=== PATIENT | female | born 1955 | race Caucasian/White ===

== ENCOUNTER 2023-03-24 11:36 | Outpatient (RCR) | payer MEDICARE, SELFPAY ==
--- NOTE | 2023-03-24 12:41 | OPREHPOC ---
Outpatient Therapy Plan of Care This is a Multidisciplinary Plan of Care that may contain components documented by all disciplines (PT, OT, and ST.) PT Problem 1 PT Problem #1 Knowledge Deficit PT Goal 1 Goal 1. independent and compliant with HEP Target Visit 6 PT Problem 2 PT Problem #2 Pain PT Goal 1 Goal 1. decrease pain at worst to 3/10 in the L knee with exercise and ambulation/standing. Target Visit 18 PT Problem 3 PT Problem #3 Impaired Range of Motion PT Goal 1 Goal 0-120 degrees active L knee rom. Target Visit 18 PT Problem 4 PT Problem #4 Impaired Strength PT Goal 1 Goal 4/5 or better L hip flex in supine without extension lag with SLR 4+/5 or better L knee strength 4+/5 or better L ankle DF Target Visit 18 PT Problem 5 PT Problem #5 Impaired Functional Mobil PT Goal 1 Goal 1. patient to ambulate without AD 2. patient to ambulate 1000ft or more in 6 minute walk test 3. equal stance time and weight bearing during ambulation 4. ambulate up and down steps with reciprocal gait mechanics. Target Visit 18
--- NOTE | 2023-03-24 12:42 | PTOPEVAL1 ---
Assessment and note entered by [facility], PT Evaluation Information Assessment Status Evaluation Diagnosis s/p L TKA Onset 03/15/23 Subjective Information patient reports she had L TKA on 03/15/23. she reports she had arthritis in it prior to surgery. she reports she tore the meniscus 5 years ago, but managed pain and activity with injections. she reports she uses a CPM at home. she reports she is cautious as this is her first surgery. Reported Pain Level Pain Score 3: Self Report Assessment PT Clinical Summary mrs. chung presents to skilled PT for evaluation and treatment of L knee pain, weakness, and abnormal gait mechanics following L TKA. she presents today with deficits in rom, strength, gait mechanics, balance, and functional activity performance. she would benefit from continued skilled PT services to improve her objective/ functional deficits and return to her prior level mobility and quality of life. Plan of Care Interventions Electrical Stimulation,Hot Pack/Cold Pack,Manual Therapy,Neuro Re-education,Patient/Caregiver Educati,Therapeutic Activities,Therapeutic Exercise PT Services Indicated Yes Treatment Frequency and 3x weekly for 18 visits Duration These treatments will address the objective and functional deficits as defined above. The patient will be advanced safely and appropriately in order for the patient to progress towards his/her prior level of function. Additional exercises will be introduced and as well as a comprehensive home exercise program upon discharge, if needed, ?to ensure carryover of functional gains achieved in the clinic. This treatment plan has been reviewed and agreement upon by the patient.
--- NOTE | 2023-03-28 07:57 | PCPTNOTE ---
Mrs. García left a voice message with the clinic stating that she would have to cancel her appointment due to being ill.
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
--- NOTE | 2023-04-11 07:01 | PCPTNOTE ---
Patient cancelled session today due to illness.
--- NOTE | 2023-04-15 11:09 | PCPTNOTE ---
patient cancelled due to incision opening
--- NOTE | 2023-04-19 13:04 | PCPTNOTE ---
patient had to re-schedule today's appointment for later this week.
--- NOTE | 2023-04-25 08:18 | PTOPPROG ---
Assessment and note entered by [facility] Evaluation Information Assessment Status Progress Diagnosis s/p L TKA Onset 03/15/23 Subjective Information Pt. reports that she is slowly improving. She reports that she is still noticing stiffness, but continues to exercise at home. She reports she is still exercising at least 3x/day. She states that she has returned to driving and is currently using a cane for all ambulation. She reports her goal remains to improve her mobility and walk normally. Assessment PT Clinical Summary Pt. has attended a total of 10 treatment sessions. She has demonstrated gradual improvements in strength and mobility since beginning rehab. She continues to present with deficits in strength, ROM, edema and gait despite progress. Continued rehab is recommended in order to allow the pt. to achieve her goal of normal gait and mobility. Plan of Care Interventions Gait Training,Intermittent Compression,Manual Therapy,Neuro Re-education,Patient/Caregiver Educati,Therapeutic Activities,Therapeutic Exercise PT Services Indicated Yes Treatment Frequency and 3x/week x 8 visits Duration These treatments will address the objective and functional deficits as defined above. The patient will be advanced safely and appropriately in order for the patient to progress towards his/her prior level of function. Additional exercises will be introduced and as well as a comprehensive home exercise program upon discharge, if needed, ?to ensure carryover of functional gains achieved in the clinic. This treatment plan has been reviewed and agreement upon by the patient.
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
--- NOTE | 2023-05-04 07:06 | PCPTNOTE ---
Patient cancelled session today. She reports her incision keeps opening, and she will be calling her doctor.
--- NOTE | 2023-05-05 12:30 | PCPTNOTE ---
Patient cancelled session for 05/06/23. Patient reports her incision has opened again, and she was told to hold on therapy, and to perform at home. Patient reports she sees the surgeon on Tuesday.
--- NOTE | 2023-06-01 08:47 | OPREHPOC ---
Outpatient Therapy Plan of Care This is a Multidisciplinary Plan of Care that may contain components documented by all disciplines (PT, OT, and ST.) PT Problem 1 PT Problem #1 Knowledge Deficit PT Goal 1 Goal 1. independent and compliant with HEP Target Visit 6 Progress Met PT Problem 2 PT Problem #2 Pain PT Goal 1 Goal 1. decrease pain at worst to 3/10 in the L knee with exercise and ambulation/standing. Target Visit 24 Progress Not Met PT Problem 3 PT Problem #3 Impaired Range of Motion PT Goal 1 Goal 0-120 degrees active L knee rom. Target Visit 24 Progress Not Met PT Problem 4 PT Problem #4 Impaired Strength PT Goal 1 Goal 4/5 or better L hip flex in supine without extension lag with SLR. met 4+/5 or better L knee strength. 4+/5 or better L ankle DF. met Target Visit 24 Progress Partially Met PT Problem 5 PT Problem #5 Impaired Functional Mobil PT Goal 1 Goal 1. patient to ambulate without AD. met 2. patient to ambulate 1000ft or more in 6 minute walk test. met 3. equal stance time and weight bearing during ambulation. 4. ambulate up and down steps with reciprocal gait mechanics. Target Visit 24 Progress Partially Met
--- NOTE | 2023-06-01 08:47 | PTOPREEVAL ---
Assessment and note entered by [facility], PT Evaluation Information Assessment Status Re-evaluation Diagnosis s/p L TKA Onset 03/15/23 Subjective Information patient reports she feels so much better now that the L knee incision is healed and she does not feel like it is pulling apart when bending. she reports she is compliant with exercises at home. she reports it still bothers her the worst when trying to go to bed, getting up in the morning, and when going up and down steps. she reports she only has 2 steps to go up and down at home, but has to use both hand rails. Reported Pain Level Pain Score 1: Self Report Assessment PT Clinical Summary mrs. chung presents to skilled PT for her 18th skilled therapy session. she has had a few minor setback in her treatment plan due to deficits in healing of the L knee incision. she continues to have deficits in L knee active rom, L LE strength, gait mechanics, and stair ambulation. she has not yet met goals for pain and rom, but has made progress towards/partial achievement of goals for strength and functional mobility. she would benefit from continued skilled PT to further improve objective/functional deficits to her remaining functional goals. Plan of Care Interventions Gait Training,Hot Pack/Cold Pack,Intermittent Compression,Manual Therapy,Neuro Re-education, Patient/Caregiver Educati,Therapeutic Activities, Therapeutic Exercise PT Services Indicated Yes Treatment Frequency and continue skilled PT 2x weekly for 6 more visits Duration These treatments will address the objective and functional deficits as defined above. The patient will be advanced safely and appropriately in order for the patient to progress towards his/her prior level of function. Additional exercises will be introduced and as well as a comprehensive home exercise program upon discharge, if needed, ?to ensure carryover of functional gains achieved in the clinic. This treatment plan has been reviewed and agreement upon by the patient.
--- NOTE | 2023-06-06 07:00 | PCPTNOTE ---
Patient cancelled session this morning. Did not give reason for cancelling.
--- NOTE | 2023-06-22 07:08 | PCPTNOTE ---
Patient cancelled session today. Patient reports she is not feeling well.
== END 2023-06-16 20:00 | disposition still patient (30) ==
LOC: CHSPT 11:36
PROVIDERS: Visit Provider Orthopaedic Surgery
DX: Z47.1 Aftercare following joint replacement surgery (principal); Z96.652 Presence of left artificial knee joint
CPT/HCPCS: 97014; 97016; 97110; 97112; 97116; 97140; 97161; 97530; G0283

== ENCOUNTER 2023-06-23 08:00 | Outpatient (RCR) | payer MEDICARE, SELFPAY ==
--- NOTE | 2023-07-01 07:49 | PCPTNOTE ---
patient called to cancel due to babysitting
== END 2023-06-23 20:00 | disposition home or self-care (01) ==
LOC: CHSPT 08:00
PROVIDERS: Visit Provider Orthopaedic Surgery
DX: Z47.1 Aftercare following joint replacement surgery (principal); M54.31 Sciatica, right side; Z96.652 Presence of left artificial knee joint
CPT/HCPCS: 97110; 97112; 97530

== ENCOUNTER 2023-12-27 15:28 | Outpatient (CLI) | payer MEDICARE, SELFPAY | END 2023-12-27 15:29 | disposition home or self-care (01) | LOC: CHSLAB 15:31 | PROVIDERS: PCP Specialist; Visit Provider Specialist | DX: C44.311 Basal cell carcinoma of skin of nose (principal) | CPT/HCPCS: 88305 ==

== ENCOUNTER 2024-06-06 08:07 | Outpatient (CLI) | payer MEDICARE, SELFPAY ==
--- NOTE | ~2024-06-06 | MM_ITS ---
EXAMINATION: MM screening hermelinda BI w lady HISTORY: Screening TECHNIQUE: Craniocaudal and mediolateral oblique 3-D tomosynthesis images were obtained and synthetic 2-D images were generated. CAD analysis was submitted and interpreted. COMPARISON: No prior mammogram is available for comparison at this institution. BREAST PARENCHYMAL COMPOSITION: There are scattered areas of fibroglandular density. FINDINGS: Punctate calcifications are detected bilaterally, morphologically benign in appearance. Unremarkable parenchymal pattern without suspicious microcalcifications, architectural distortion, di screte masses or significant asymmetry. However, no prior imaging is available for comparison. Once prior images arrive, comparison will be performed. IMPRESSION: Prior imaging is needed for complete evaluation BI-RADS Category 0: Incomplete: Needs comparison with prior mammograms. Reviewed, dictated and finalized at location A.
--- OUTSIDE RECORDS SUMMARY | 2024-06-06 08:19 | XMS_ITS | Data Portability ---
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 Plan of Treatment Reminders Order Date Submit Date Provider Last Modified By Organization Details Last Modified Time Details Appointments None recorded. Lab CBC 2024 025 [facility]INE [facility], [address] [facility] [address], [place], [address], 5 09:13:32 CMP, serum or plasma 2024 025 [facility], [address] [facility] [address], [place], [address], 5 09:13:30 lipid panel, serum 2024 025 [facility], [address] [facility] [address], [place], [address], 5 09:13:28 HbA1c (hemoglobin A1c), blood 2024 025 JACQUELINE In-Office Order, Internal Use Only DO Not Attach Compendium DO Not Attach Compendium, Do Not Delete/merge, [id number] 11:10:17 HbA1c (hemoglobin A1c), blood 2023 024 [email or web address] In-Office Order, Internal Use Only DO Not Attach Compendium DO Not Attach Compendium, Do Not Delete/merge, [id number] 4 11:39:03 CBC 2023 024 [facility]QU[facility]INE [facility], [address], [place], [address], 4 11:16:56 CMP, serum or plasma 2023 024 [facility], [address], [place], [address], 4 11:16:54 lipid panel, serum 2023 024 [facility]QU[facility]INE [facility], [address], [place], [address], 4 11:16:54 drug screen, urine 2023 024 [email or web address] In-Office Order, Internal Use Only DO Not Attach Compendium DO Not Attach Compendium, Do Not Delete/merge, [id number] 4 10:53:04 HbA1c (hemoglobin A1c), blood 2023 024 [email or web address] In-Office Order, Internal Use Only DO Not Attach Compendium DO Not Attach Compendium, Do Not Delete/merge, [id number] 4 12:08:49 HbA1c (hemoglobin A1c), blood 2022 023 [email or web address] In-Office Order, Internal Use Only DO Not Attach Compendium DO Not Attach Compendium, Do Not Delete/merge, [id number] 3 11:26:08 CBC 2022 023 [facility], [address], [place], [address], 3 06:21:13 CMP, serum or plasma 2022 023 [facility], [address], [place], [address], 3 06:21:12 lipid panel, serum 2022 023 [facility], [address] [facility] [address], [place], [address], 3 06:21:11 Referral None recorded. Procedures None recorded. Surgeries None recorded. Imaging None recorded. Medication Orders atorvastati n 10 mg tablet 2024 025 [id number], [address] [place], [address], 5 10:56:12 Patient TargetsNo targets recorded. Patient Instructions Encounter Date Encounter Id Patient Instructions Last Modified By Organization Details Last Modified Time 02/22/2023 [id number] A healthy lifestyle: care instructions [facility] Not available 02/22/2023 11:28:41 type 2 diabetes: [facility] Not available 02/22/2023 11:26:05 05/10/2023 [id number] A healthy lifestyle: [facility] Not available 05/10/2023 14:08:29 learning about high blood [facility] Not available 05/10/2023 14:08:29 10/24/2023 [id number] A healthy lifestyle: care instructions [email or web address] Not available 10/24/2023 12:08:48 Your women's health annual exam today was unremarkable. Continue to practice breast self awareness like we discussed. Come back to the office with any breast changes, nipple discharge, or with complaints of unusual odorous discharge. Otherwise, come back in 1 year for your next well woman annual exam. Do NOT douche as it disturbs the natural balance of bacteria in the vagina and can cause infection. Avoid scented soaps or lotions. Use a basic unscented soap for only the outer skin around your vagina. Wear cotton underwear, avoid thongs, avoid spandex, leggings and wear panty liners daily. You can try probiotics. Use a condom with EVERY sexual encounter to minimize your risk for sexually transmitted infection and unplanned . 1. Start taking a multivitamin, calcium and vitamin D3 supplements daily to keep your bones healthy. 2. Exercise and keep a healthy diet to minimize risk for stroke, heart attack and osteoporosis. 3. Use a once a day vaginal moisturizer (like Replens) if you have bothersome dryness. If dryness continues to be a problem, make an appointment to see us to discuss other options. Keep taking your multivitamins. Your bones get weaker after menopause, and you need to take your calcium and vitamin D3, which are multivitamins, to make sure your bones stay strong. Regular exercise, like walking, is very good to keep bones healthy. Try exercising for 30 minutes 5 times a week. Try having 2-3 servings of low fat dairy every day. Lubrication can help make penetrative intercourse more comfortable. There are 3 types of lube: Water-based (examples are KY jelly, Astroglide): inexpensive, can buy over the counter, often gets sticky and needs to be reapplied. Oil-based (examples olive oil, coconut oil): inexpensive, can stain sheets, do not use with condoms. Silicone-based (examples Uber Lube, Pjur): more expensive, a little goes a long way, does not have scents or stain sheets. [email or web address] Not available 10/24/2023 10:26:16 12/13/2023 [id number] influenza (flu) vaccine: care instructions jnanney Not available 12/13/2023 10:55:02 A healthy lifestyle: care instructions jnanney Not available 12/13/2023 10:55:02 learning about type 2 diabetes jnanney Not available 12/13/2023 10:55:02 type 2 diabetes: care instructions jnanney Not available 12/13/2023 10:55:02 learning about high blood pressure jnanney Not available 12/13/2023 10:55:02 05/01/2024 [id number] A healthy lifestyle: care instructions jnanney Not available 05/01/2024 11:00:46 learning about high blood pressure jnanney Not available 05/01/2024 10:49:40 Reason for Referral None Reported. Results Created Date Observation Date Name Description Value Unit Range Abnormal Flag Note LastModifiedBy Organization Detail LastModifiedTime 02/23/20 23 02/22/2023 LIPID PANEL cholesterol, total 246 mg/dL 100-19 9 above high normal Not Available [facility] [address] [place] [address], [place], [address], 02/23/2023 06:21:11 02/23/20 23 02/22/2023 LIPID PANEL triglyceride s 124 mg/dL 0-149 Not Available [address], [address], 02/23/2023 06:21:11 02/23/20 23 02/22/2023 LIPID PANEL HDL cholesterol 81 mg/dL 40-999 Not Available [address], [address], 02/23/2023 06:21:11 02/23/20 23 02/22/2023 LIPID PANEL VLDL cholesterol ryan 25 mg/dL 5-40 Not Available [address], [address], 02/23/2023 06:21:11 02/23/20 23 02/22/2023 LIPID PANEL LDL chol calc ([facility]) 158 mg/dL 0-99 above high normal Not Available [address], [address], 02/23/2023 06:21:11 02/23/20 23 02/22/2023 COMP. METAB OLIC PANEL (14) glucose 99 mg/dL 70-99 Not Available [address], [address], 02/23/2023 06:21:12 02/23/20 23 02/22/2023 COMP. METAB OLIC PANEL (14) BUN 17 mg/dL 8-27 Not Available [address], [address], 02/23/2023 06:21:12 02/23/20 23 02/22/2023 COMP. METAB OLIC PANEL (14) creatinine 0.80 mg/dL 0.76-1 .27 Not Available [address], [address], 02/23/2023 06:21:12 02/23/20 23 02/22/2023 COMP. METAB OLIC PANEL (14) eGFR 82 >=60 Units for eGFR value s are mL/mi n/1.7 3 The eGFR Calcu latio n has not been valid ated for patie nts under the age of 18. If test resul ts are displ ayed for a patie nt under the age of 18, disre nitin that value . Not Available [address], [address], 02/23/2023 06:21:12 02/23/20 23 02/22/2023 COMP. METAB OLIC PANEL (14) BUN/creatini ne ratio 21 10-28 Not Available [address], [address], 02/23/2023 06:21:12 02/23/20 23 02/22/2023 COMP. METAB OLIC PANEL (14) sodium 139 mmol/ L 134-14 4 Not Available [address], [address], 02/23/2023 06:21:12 02/23/20 23 02/22/2023 COMP. METAB OLIC PANEL (14) potassium 4.4 mmol/ L 3.5-5. 2 Not Available [address], [address], 02/23/2023 06:21:12 02/23/20 23 02/22/2023 COMP. METAB OLIC PANEL (14) chloride 102 mmol/ L 96-106 Not Available [address], [address], 02/23/2023 06:21:12 02/23/20 23 02/22/2023 COMP. METAB OLIC PANEL (14) carbon dioxide, total 22 mmol/ L 20-29 Not Available [address], [address], 02/23/2023 06:21:12 02/23/20 23 02/22/2023 COMP. METAB OLIC PANEL (14) calcium 10.4 mg/dL 8.7-10 .3 above high normal Not Available [address], [address], 02/23/2023 06:21:12 02/23/20 23 02/22/2023 COMP. METAB OLIC PANEL (14) protein, total 7.1 g/dL 6.0-8. 5 Not Available [address], [address], 02/23/2023 06:21:12 02/23/20 23 02/22/2023 COMP. METAB OLIC PANEL (14) albumin 4.5 g/dL 3.8-4. 8 Not Available [address], [address], 02/23/2023 06:21:12 02/23/20 23 02/22/2023 COMP. METAB OLIC PANEL (14) globulin, total 2.6 g/dL 1.5-4. 5 Not Available [address], [address], 02/23/2023 06:21:12 02/23/20 23 02/22/2023 COMP. METAB OLIC PANEL (14) A/G ratio 2.0 1.2-2. 2 Not Available [address], [address], 02/23/2023 06:21:12 02/23/20 23 02/22/2023 COMP. METAB OLIC PANEL (14) bilirubin, total 0.3 mg/dL 0.0-1. 2 Not Available [address], [address], 02/23/2023 06:21:12 02/23/20 23 02/22/2023 COMP. METAB OLIC PANEL (14) alkaline phosphatase 69 IU/L 44-121 Not Available [address], [address], 02/23/2023 06:21:12 02/23/20 23 02/22/2023 COMP. METAB OLIC PANEL (14) AST (SGOT) 25 IU/L 0-40 Not Available [address], [address], 02/23/2023 06:21:12 02/23/20 23 02/22/2023 COMP. METAB OLIC PANEL (14) ALT (SGPT) 25 IU/L 0-32 Not Available [address], [address], 02/23/2023 06:21:12 02/23/20 23 02/22/2023 CBC, PLATE LET, NO DIFFE RENTI AL WBC 5.6 x10e3 /uL 3.4-10 .8 Not Available [address], [address], 02/23/2023 06:21:13 02/23/20 23 02/22/2023 CBC, PLATE LET, NO DIFFE RENTI AL RBC 4.58 x10e6 /uL 3.77-5 .28 Not Available [address], [address], 02/23/2023 06:21:13 02/23/20 23 02/22/2023 CBC, PLATE LET, NO DIFFE RENTI AL hemoglobin 13.7 g/dL 11.1-1 5.9 Not Available [address], [address], 02/23/2023 06:21:13 02/23/20 23 02/22/2023 CBC, PLATE LET, NO DIFFE RENTI AL hematocrit 42.6 % 34.0-4 6.6 Not Available [address], [address], 02/23/2023 06:21:13 02/23/2002/22/2023 CBC, PLATE LET, NO DIFFE RENTI AL MCV 93 fL 79-97 Not Available [address], [address], 02/23/2023 06:21:13 02/23/20 23 02/22/2023 CBC, PLATE LET, NO DIFFE RENTI AL MCH 29.9 pg 26.6-3 3.0 Not Available [address], [address], 02/23/2023 06:21:13 02/23/2002/22/2023 CBC, PLATE LET, NO DIFFE RENTI AL MCHC 32.2 g/dL 31.5-3 5.7 Not Available [address], [address], 02/23/2023 06:21:13 02/23/2002/22/2023 CBC, PLATE LET, NO DIFFE RENTI AL RDW 13.3 % 11.5-1 4.5 Not Available [address], [address], 02/23/2023 06:21:13 02/23/2002/22/2023 CBC, PLATE LET, NO DIFFE RENTI AL platelets 351 x10e3 /uL 150-45 0 Mean Plate let Volum e 10.0 fL 8.9-1 2.7 N Not Available [address], [address], 02/23/2023 06:21:13 02/23/20 23 02/22/2023 CBC, PLATE LET, NO DIFFE RENTI AL NRBC 0 % 0-0 Not Available [address], [address], 02/23/2023 06:21:13 02/23/20 23 02/23/2023 CARDI OVASC ULAR REPOR T interpretati on Note Suppl ement al repor t is avail able. Not Available [address], [address], 02/23/2023 06:21:13 02/23/20 23 02/23/2023 CARDI OVASC ULAR REPOR T pdf . Not Available [address], [address], 02/23/2023 06:21:13 02/23/20 23 02/22/2023 HbA1c (hemo globi n A1c), blood HbA1c 6.1 Not Available In-Office Order Internal Use Only DO Not Attach Compendium DO Not Attach Compendium, Do Not Delete/merge, [id number] 02/22/2023 09:25:28 10/24/19 24 10/24/2023 HbA1c (hemo globi n A1c), blood HbA1c 6.1 Not Available In-Office Order Internal Use Only DO Not Attach Compendium DO Not Attach Compendium, Do Not Delete/merge, [id number] 10/24/2023 10:27:54 12/13/1912/14/2023 LIPID PANEL cholesterol, total 225 mg/dL 100-19 9 above high normal Not Available [address], [address], 12/14/2023 11:16:54 12/13/1912/14/2023 LIPID PANEL triglyceride s 81 mg/dL 0-149 Not Available [address], [address], 12/14/2023 11:16:54 12/13/19 24 12/14/2023 LIPID PANEL HDL cholesterol 82 mg/dL >39 Not Available [facility] & [address], [address], 12/14/2023 11:16:54 12/13/1912/14/2023 LIPID PANEL VLDL cholesterol ryan 14 mg/dL 5-40 Not Available [address], [address], 12/14/2023 11:16:54 12/13/1912/14/2023 LIPID PANEL LDL chol calc ([facility]) 129 mg/dL 0-99 above high normal Not Available [address], [address], 12/14/2023 11:16:54 12/13/1912/14/2023 COMP. METAB OLIC PANEL (14) glucose 107 mg/dL 70-99 above high normal Not Available [address], [address], 12/14/2023 11:16:54 12/13/1912/14/2023 COMP. METAB OLIC PANEL (14) BUN 16 mg/dL 8-27 Not Available [address], [address], 12/14/2023 11:16:54 12/13/1912/14/2023 COMP. METAB OLIC PANEL (14) creatinine 0.91 mg/dL 0.57-1 .00 Not Available [address], [address], 12/14/2023 11:16:54 12/13/1912/14/2023 COMP. METAB OLIC PANEL (14) eGFR 70 mL/mi n/1.7 3 >59 Not Available [address], [address], 12/14/2023 11:16:54 12/13/1904 0112/14/2023 COMP. METAB OLIC PANEL (14) BUN/creatini ne ratio 18 12-28 Not Available [address], [address], 12/14/2023 11:16:54 12/13/19 24 12/14/2023 COMP. METAB OLIC PANEL (14) sodium 140 mmol/ L 134-14 4 Not Available [address], [address], 12/14/2023 11:16:54 12/13/1912/14/2023 COMP. METAB OLIC PANEL (14) potassium 4.5 mmol/ L 3.5-5. 2 Not Available [address], [facility], 12/14/2023 11:16:54 12/13/1912/14/2023 COMP. METAB OLIC PANEL (14) chloride 103 mmol/ L 96-106 Not Available [address], [address], 12/14/2023 11:16:54 12/13/1912/14/2023 COMP. METAB OLIC PANEL (14) carbon dioxide, total 21 mmol/ L 20-29 Not Available [address], [facility], 12/14/2023 11:16:54 12/13/1912/14/2023 COMP. METAB OLIC PANEL (14) calcium 10.2 mg/dL 8.7-10 .3 Not Available [address], [address], 12/14/2023 11:16:54 12/13/19 24 12/14/2023 COMP. METAB OLIC PANEL (14) protein, total 6.8 g/dL 6.0-8. 5 Not Available [address] [place], [address], 12/14/2023 11:16:54 12/13/1912/14/2023 COMP. METAB OLIC PANEL (14) albumin 4.5 g/dL 3.9-4. 9 Not Available [address], [address], 12/14/2023 11:16:54 12/13/1912/14/2023 COMP. METAB OLIC PANEL (14) globulin, total 2.3 g/dL 1.5-4. 5 Not Available [address], [address], 12/14/2023 11:16:54 12/13/1912/14/2023 COMP. METAB OLIC PANEL (14) bilirubin, total 0.4 mg/dL 0.0-1. 2 Not Available [address], [address], 12/14/2023 11:16:54 12/13/1912/14/2023 COMP. METAB OLIC PANEL (14) alkaline phosphatase 74 IU/L 44-121 Not Available [address], [address], 12/14/2023 11:16:54 12/13/1912/14/2023 COMP. METAB OLIC PANEL (14) AST (SGOT) 19 IU/L 0-40 Not Available [address], [address], 12/14/2023 11:16:54 12/13/1912/14/2023 COMP. METAB OLIC PANEL (14) ALT (SGPT) 20 IU/L 0-32 Not Available [address], [address], 12/14/2023 11:16:54 12/13/1912/14/2023 CARDI OVASC ULAR REPOR T interpretati on Note Suppl tara schmitt repor t is avail able. Not Available [address], [address], 12/14/2023 11:16:55 12/13/1912/14/2023 CARDI OVASC ULAR REPOR T pdf . Not Available [facility] & [address], [address], 12/14/2023 11:16:55 12/13/1912/14/2023 CBC, PLATE LET, NO DIFFE RENTI AL WBC 4.9 x10e3 /uL 3.4-10 .8 Not Available [address], [address], 12/14/2023 11:16:56 12/13/1912/14/2023 CBC, PLATE LET, NO DIFFE RENTI AL RBC 4.62 x10e6 /uL 3.77-5 .28 Not Available [address], [address], 12/14/2023 11:16:56 12/13/1912/14/2023 CBC, PLATE LET, NO DIFFE RENTI AL hemoglobin 14.1 g/dL 11.1-1 5.9 Not Available [facility] & [address], [address], 12/14/2023 11:16:56 12/13/1912/14/2023 CBC, PLATE LET, NO DIFFE RENTI AL hematocrit 43.5 % 34.0-4 6.6 Not Available [address], [address], 12/14/2023 11:16:56 12/13/1912/14/2023 CBC, PLATE LET, NO DIFFE RENTI AL MCV 94 fL 79-97 Not Available [address], [address], 12/14/2023 11:16:56 12/13/1912/14/2023 CBC, PLATE LET, NO DIFFE RENTI AL MCH 30.5 pg 26.6-3 3.0 Not Available [address], [address], 12/14/2023 11:16:56 12/13/1912/14/2023 CBC, PLATE LET, NO DIFFE RENTI AL MCHC 32.4 g/dL 31.5-3 5.7 Not Available [address], [address], 12/14/2023 11:16:56 12/13/1912/14/2023 CBC, PLATE LET, NO DIFFE RENTI AL RDW 12.8 % 11.7-1 5.4 Not Available [address], [address], 12/14/2023 11:16:56 12/13/1912/14/2023 CBC, PLATE LET, NO DIFFE RENTI AL platelets 320 x10e3 /uL 150-45 0 Not Available [address], [address], 12/14/2023 11:16:56 12/13/1912/13/2023 HbA1c (hemo globi n A1c), blood HbA1c 6.1 Not Available In-Office Order Internal Use Only DO Not Attach Compendium DO Not Attach Compendium, Do Not Delete/merge, [id number] 12/13/2023 11:13:48 12/13/1912/13/2023 drug scree n, urine Methamphetam ine Negati ve Not Available In-Office Order Internal Use Only DO Not Attach Compendium DO Not Attach Compendium, Do Not Delete/merge, [id number] 12/13/2023 08:58:17 12/13/19 24 12/13/2023 drug scree n, urine THC Negati ve Not Available In-Office Order Internal Use Only DO Not Attach Compendium DO Not Attach Compendium, Do Not Delete/merge, 12/13/2023 08:58:17 12/13/19 24 12/13/2023 drug scree n, urine Cocaine (Ace) Negati ve Not Available In-Office Order Internal Use Only DO Not Attach Compendium DO Not Attach Compendium, Do Not Delete/merge, 12/13/2023 08:58:17 12/13/1912/13/2023 drug scree n, urine Benzodiazepi ne (Bzo) Positi ve Not Available In-Office Order Internal Use Only DO Not Attach Compendium DO Not Attach Compendium, Do Not Delete/merge, 12/13/2023 08:58:17 12/13/1912/13/2023 drug scree n, urine Methadone (Mtd) Negati ve Not Available In-Office Order Internal Use Only DO Not Attach Compendium DO Not Attach Compendium, Do Not Delete/merge, 12/13/2023 08:58:17 12/13/1912/13/2023 drug scree n, urine Buprenorphin e (Bup) Negati ve Not Available In-Office Order Internal Use Only DO Not Attach Compendium DO Not Attach Compendium, Do Not Delete/merge, 12/13/2023 08:58:17 12/13/19 24 12/13/2023 drug scree n, urine Oxycodone (Oxy) Negati ve Not Available In-Office Order Internal Use Only DO Not Attach Compendium DO Not Attach Compendium, Do Not Delete/merge, 12/13/2023 08:58:17 12/13/19 24 12/13/2023 drug scree n, urine Barbiturates (Bar) Negati ve Not Available In-Office Order Internal Use Only DO Not Attach Compendium DO Not Attach Compendium, Do Not Delete/merge, 12/13/2023 08:58:17 12/13/19 24 12/13/2023 drug scree n, urine MDMA (Ecstacy) Negati ve Not Available In-Office Order Internal Use Only DO Not Attach Compendium DO Not Attach Compendium, Do Not Delete/merge, 12/13/2023 08:58:17 12/13/19 24 12/13/2023 drug scree n, urine Amphetamines (Amp) Negati ve Not Available In-Office Order Internal Use Only DO Not Attach Compendium DO Not Attach Compendium, Do Not Delete/merge, 12/13/2023 08:58:17 12/13/19 24 12/13/2023 drug scree n, urine Opiates (opi) Negati ve Not Available In-Office Order Internal Use Only DO Not Attach Compendium DO Not Attach Compendium, Do Not Delete/merge, 12/13/2023 08:58:17 12/13/19 24 12/13/2023 drug scree n, urine Phencyclidin e (Pcp) Negati ve Not Available In-Office Order Internal Use Only DO Not Attach Compendium DO Not Attach Compendium, Do Not Delete/merge, 12/13/2023 08:58:17 12/13/1912/13/2023 drug scree n, urine Tricyclic Antidepressa nts Negati ve Not Available In-Office Order Internal Use Only DO Not Attach Compendium DO Not Attach Compendium, Do Not Delete/merge, 12/13/2023 08:58:17 12/13/19 24 12/13/2023 drug scree n, urine Fentanyl Negati ve Not Available In-Office Order Internal Use Only DO Not Attach Compendium DO Not Attach Compendium, Do Not Delete/merge, 12/13/2023 08:58:17 05/01/19 25 05/02/2024 LIPID PANEL cholesterol, total 240 mg/dL 100-19 9 above high normal Not Available [address], [address], 05/02/2024 09:13:28 05/01/19 25 05/02/2024 LIPID PANEL triglyceride s 96 mg/dL 0-149 Not Available [address], [address], 05/02/2024 09:13:28 05/01/19 25 05/02/2024 LIPID PANEL HDL cholesterol 80 mg/dL >39 Not Available [address], [address], 05/02/2024 09:13:28 05/01/19 25 05/02/2024 LIPID PANEL VLDL cholesterol ryan 16 mg/dL 5-40 Not Available [address], [address], 05/02/2024 09:13:28 05/01/19 25 05/02/2024 LIPID PANEL LDL chol calc (nih) 144 mg/dL 0-99 above high normal Not Available [address], [address], 05/02/2024 09:13:28 05/01/19 25 05/02/2024 COMP. METAB OLIC PANEL (14) glucose 94 mg/dL 70-99 Not Available [address], [address], 05/02/2024 09:13:30 05/01/19 25 05/02/2024 COMP. METAB OLIC PANEL (14) BUN 13 mg/dL 8-27 Not Available [address], [address], 05/02/2024 09:13:30 05/01/19 25 05/02/2024 COMP. METAB OLIC PANEL (14) creatinine 0.92 mg/dL 0.57-1 .00 Not Available [address], [address], 05/02/2024 09:13:30 05/01/19 25 05/02/2024 COMP. METAB OLIC PANEL (14) eGFR 68 mL/mi n/1.7 3 >59 Not Available [address], [address], 05/02/2024 09:13:30 05/01/19 25 05/02/2024 COMP. METAB OLIC PANEL (14) BUN/creatini ne ratio 14 12-28 Not Available [address], [address], 05/02/2024 09:13:30 05/01/19 25 05/02/2024 COMP. METAB OLIC PANEL (14) sodium 139 mmol/ L 134-14 4 Not Available [address], [address], 05/02/2024 09:13:30 05/01/19 25 05/02/2024 COMP. METAB OLIC PANEL (14) potassium 4.7 mmol/ L 3.5-5. 2 Not Available [address], [address], 05/02/2024 09:13:30 05/01/19 25 05/02/2024 COMP. METAB OLIC PANEL (14) chloride 101 mmol/ L 96-106 Not Available [address], [address], 05/02/2024 09:13:30 05/01/19 25 05/02/2024 COMP. METAB OLIC PANEL (14) carbon dioxide, total 22 mmol/ L 20-29 Not Available [address], [address], 05/02/2024 09:13:30 05/01/19 25 05/02/2024 COMP. METAB OLIC PANEL (14) calcium 9.8 mg/dL 8.7-10 .3 Not Available [address], [address], 05/02/2024 09:13:30 05/01/19 25 05/02/2024 COMP. METAB OLIC PANEL (14) protein, total 6.9 g/dL 6.0-8. 5 Not Available [address], [address], 05/02/2024 09:13:30 05/01/19 25 05/02/2024 COMP. METAB OLIC PANEL (14) albumin 4.5 g/dL 3.9-4. 9 Not Available [address], [address], 05/02/2024 09:13:30 05/01/19 25 05/02/2024 COMP. METAB OLIC PANEL (14) globulin, total 2.4 g/dL 1.5-4. 5 Not Available [address], [address], 05/02/2024 09:13:30 05/01/19 25 05/02/2024 COMP. METAB OLIC PANEL (14) bilirubin, total 0.3 mg/dL 0.0-1. 2 Not Available [address], [address], 05/02/2024 09:13:30 05/01/19 25 05/02/2024 COMP. METAB OLIC PANEL (14) alkaline phosphatase 70 IU/L 44-121 Not Available [address], [address], 05/02/2024 09:13:30 05/01/19 25 05/02/2024 COMP. METAB OLIC PANEL (14) AST (SGOT) 20 IU/L 0-40 Not Available [address], [address], 05/02/2024 09:13:30 05/01/19 25 05/02/2024 COMP. METAB OLIC PANEL (14) ALT (SGPT) 21 IU/L 0-32 Not Available [facility] & [address], [address], 05/02/2024 09:13:30 05/01/19 25 05/02/2024 CARDI OVASC ULAR REPOR T interpretati on Note Suppl ement al repor t is avail able. Not Available [address], [address], 05/02/2024 09:13:31 05/01/1905/02/2024 CARDI OVASC ULAR REPOR T pdf . Not Available [address], [address], 05/02/2024 09:13:31 05/01/1905/02/2024 CBC, PLATE LET, NO DIFFE RENTI AL WBC 5.1 x10e3 /uL 3.4-10 .8 Not Available [address], [address], 05/02/2024 09:13:32 05/01/1905/02/2024 CBC, PLATE LET, NO DIFFE RENTI AL RBC 4.58 x10e6 /uL 3.77-5 .28 Not Available [address], [address], 05/02/2024 09:13:32 05/01/19 25 05/02/2024 CBC, PLATE LET, NO DIFFE RENTI AL hemoglobin 13.8 g/dL 11.1-1 5.9 Not Available [address], [address], 05/02/2024 09:13:32 05/01/19 25 05/02/2024 CBC, PLATE LET, NO DIFFE RENTI AL hematocrit 42.1 % 34.0-4 6.6 Not Available [address], [address], 05/02/2024 09:13:32 05/01/1905/02/2024 CBC, PLATE LET, NO DIFFE RENTI AL MCV 92 fL 79-97 Not Available [address], [address], 05/02/2024 09:13:32 05/01/1905/02/2024 CBC, PLATE LET, NO DIFFE RENTI AL MCH 30.1 pg 26.6-3 3.0 Not Available [address], [address], 05/02/2024 09:13:32 05/01/19 25 05/02/2024 CBC, PLATE LET, NO DIFFE RENTI AL MCHC 32.8 g/dL 31.5-3 5.7 Not Available [address], [address], 05/02/2024 09:13:32 05/01/1905/02/2024 CBC, PLATE LET, NO DIFFE RENTI AL RDW 12.7 % 11.7-1 5.4 Not Available [address], [address], 05/02/2024 09:13:32 05/01/1905/02/2024 CBC, PLATE LET, NO DIFFE RENTI AL platelets 310 x10e3 /uL 150-45 0 Not Available [address], [address], 05/02/2024 09:13:32 05/01/19 25 05/01/2024 HbA1c (hemo globi n A1c), blood HbA1c 6.2 Not Available In-Office Order Internal Use Only DO Not Attach Compendium DO Not Attach Compendium, Do Not Delete/merge, [id number] 05/01/2024 10:48:20 06/03/19 24 06/03/2023 MAMMO , scree gilbert, digit al, bilat eral No observ ation record ed. [email or web address] [address] , [place], [address], 10/24/2023 11:59:42 Result Notes None recorded. Problems Name Problem SNOMED Code Status Onset Date Resolution Date Notes Provider Name and Address Organization Details Recorded Time Numbness 41426204 Active Not Available [facility] 4 05:27:33 Hypertensive disorder 66754391 Active 2017 Not Available [facility] 4 05:27:33 Gastroesophag eal reflux disease 290939354 Active 2017 Not Available [facility] 4 05:27:33 Paresthesia 22178101 Active 2017 Not Available [facility] 4 05:27:33 Type 2 diabetes mellitus 98502106 Active 2013 Not Available [facility] 4 05:27:33 Essential hypertension 37955287 Active Not Available [facility] 4 05:27:33 History of thyroid disorder 537168580 Active Not Available [facility] 4 05:27:33 Diabetes mellitus 74317178 Active Not Available [facility] 4 05:27:33 Hypothyroidis m 70192962 Active 2013 Not Available [facility] 4 05:27:33 Anxiety 00491263 Active Not Available [facility] 4 05:27:33 Conjunctiviti s 4625687 Active Not Available [facility] 4 05:27:33 Actinic keratosis 552717639 Active Not Available [facility] 4 05:27:33 Problem Notes None recorded. Procedures Surgical History Date Name Laterality Status Provider Name and Address Organization Details Recorded Time 4 Date of Last Mammogram completed Geovanna Velázquez MA [facility] 10/24/2023 10:28:02 2 Date of Last Pap Smear completed Aury Solomon MA [facility] 12/01/2021 16:27:50 8 colonoscopy completed Rachel Mcdonough [place] [facility] 06/15/2018 17:14:03 Imaging Results Imaging Date Name Status LastModified by Organiz ation Details LastModified Time 06/03/2023 MAMMO, screening, digital, bilateral completed [email or web address] [address] , [place], [address], 10/24/2023 11:59:42 Procedure Notes None recorded. Medical Equipment None Reported. Allergies Allergen ID Allergen Name Allergen Category Reaction Reaction Severity Criticality Documentation Date Start Date Code Code System Note Provider Name and Address Organization Details Recorded Time 540081 iodine medicatio n Not available Not available Not available 04/27/2017 5933 RxNorm Not Available Not Available Not Available 238329 Yuliana-Selt zer medicatio n Not available Not available Not available 04/27/2017 97842 RxNorm Not Available Not Available Not Available 430558 iodine medicatio n Not available Not available Not available 02/28/2018 5933 RxNorm Not Available Not Available Not Available 678737 naproxen medicatio n Not available Not available Not available 02/28/2018 7258 RxNorm Not Available Not Available Not Available 03966 cephalexi n medicatio n hives moderate Not available 09/11/20152017 2231 RxNorm Not Available Not Available Not Available Medications Name Sig Start Date Stop Date Status Note LastModified by Organization Details LastModified Time levothyroxi ne sodium 88 mcg tabs 08/29 completed Not Available Not Available Not Available lisinopril 20 mg tabs 08/29 completed Not Available Not Available Not Available metformin hydrochlori de 500 mg tabs 08/29 completed Not Available Not Available Not Available alprazolam 1 mg tabs 07/24 completed Not Available Not Available Not Available cyclobenzap rine 10 mg tablet 12/25 completed Not Available Not Available Not Available metformin 500 mg tablet TAKE 1 TABLET BY MOUTH TWICE A DAY WITH BREAKFAST AND DINNER active Not Available Not Available No t Available atorvastati n 10 mg tablet TAKE 1 TABLET BY MOUTH EVERY DAY active Not Available Not Available No t Available azithromyci n 250 mg tablet active Not Available Not Available Not Available alprazolam 1 mg tablet TAKE 1 TABLET BY MOUTH THREE TIMES A DAY NEEDED active Not Available Not Available No t Available clarithromy shirlene 500 mg tablet Take 1 tablet every 12 hours by oral route for 10 days. 08/29 completed Not Available Not Available Not Available hydrocodone 5 mg-acetamin ophen 325 mg tablet TAKE 1-2 TABLETS BY MOUTH EVERY 4 HOURS NEEDED FOR PAIN. 10/23 completed Not Available Not Available Not Available fluconazole 200 mg tablet TAKE 1 TABLET BY MOUTH EVERY 72 HOURS 12/25 completed Not Available Not Available Not Available lisinopril 20 mg tablet TAKE 1 TABLET BY MOUTH EVERY DAY active Not Available Not Available No t Available ondansetron HCl 4 mg tablet active Not Available Not Available Not Available prednisone 20 mg tablet 11/05 completed Not Available Not Available Not Available amlodipine 5 mg tablet TAKE 1 TABLET BY MOUTH EVERY DAY active Not Available Not Available No t Available ciprofloxac in 500 mg tablet Take 1 tablet every 12 hours by oral route for 10 days. 06/15 completed Not Available Not Available Not Available sulfamethox azole 800 mg-trimetho prim 160 mg tablet TAKE 1 TABLET BY MOUTH TWICE A DAY FOR 7 DAYS 10/23 completed Not Available Not Available Not Available aspirin 81 mg tablet,madison yed release Take 81 mg by oral route. 11/05 completed Not Available Not Available Not Available tramadol 50 mg tablet Take 1 tablet every 8 hours by oral route for 30 days. 03/23 completed Not Available Not Available Not Available levothyroxi ne 88 mcg tablet TAKE 1 TABLET BY MOUTH EVERY DAY active Not Available Not Available No t Available ciprofloxac in 0.3 % eye drops 3 drops to affected eye tid for 7 days 07/08 completed Not Available Not Available Not Available cephalexin 500 mg capsule Take 1 capsule every 8 hours by oral route as directed for 10 days. active Not Available Not Available No t Available pantoprazol e 40 mg tablet,madison yed release active Not Available Not Available Not Available lisinopril 10 mg tablet active Not Available Not Available Not Available gabapentin 300 mg capsule TAKE 1 CAPSULE BY MOUTH 3 TIMES A DAY NEEDED (FOR NERVE PAIN) 10/23 completed Not Available Not Available Not Available omeprazole 20 mg capsule,del ayed release TAKE 1 CAPSULE BY MOUTH TWICE A DAY active Not Available Not Available No t Available mupirocin 2 % topical ointment APPLY TO NOSTRILS ONCE MORNING AND EVENING 1 DAY BEFORE SURGERY, AND MORNING OF SURGERY active Not Available Not Available No t Available nystatin 100,000 unit/gram topical powder APPLY TO AFFECTED AREA TWICE A DAY 12/25 completed Not Available Not Available Not Available methylpredn isolone 4 mg tablets in a dose pack TAKE 6 TABLETS ON DAY 1 DIRECTED ON PACKAGE AND DECREASE BY 1 TAB EACH DAY FOR A TOTAL OF 6 DAYS 10/23 completed Not Available Not Available Not Available Microlet Lancet active Not Available Not Available Not Available Ventolin HFA 90 mcg/actuati on aerosol inhaler Inhale 2 puffs every 4 hours by inhalatio n route as needed for 30 days. 02/22 completed Not Available Not Available Not Available Pneumovax-2 3 25 mcg/0.5 mL injection syringe active Not Available Not Available Not Available azithromyci n 500 mg tablet TAKE 1 TABLET BY MOUTH EVERY DAY FOR 3 DAYS 02/15 completed Not Available Not Available Not Available omeprazole 20 mg tablet,madison yed release TAKE 1 TABLET BY MOUTH EVERY DAY 05/10 completed Not Available Not Available Not Available Bifidobacte rium infantis 4 mg capsule Take 4 mg by oral route. 06/15 completed Not Available Not Available Not Available Tirosint 88 mcg capsule Take 88 ugs by oral route. 06/15 completed Not Available Not Available Not Available Contour Next Test Strips active Not Available Not Available Not Available Flonase Allergy Relief 50 mcg/actuati on nasal spray,suspe nsion Belcher 1 spray every day by intranasa l route. 2022 active Not Available Not Available Not Avai lable Shingrix (PF) 50 mcg/0.5 mL intramuscul ar suspension, kit 02/28 completed Not Available Not Available Not Available Flucelvax Quad 9924-6548 (PF) 60 mcg (15 mcg x 4)/0.5 mL IM syringe 12/29 completed Not Available Not Available Not Available Vitals Date Recorded Body height Body mass index (BMI) Body weight Respiratory rate Oxygen saturation Oxygen saturation in Arterial blood by Pulse oximetry Heart rate Systolic blood pressure Diastolic blood pressure Provider Name and Address Organization Details Last Updated DateTime 3 170.18 cm 31.2 kg/m2 17071.5 8 g 16 /min 97 % 97 % 77 /min 116 mm[Hg] 79 mm[Hg] Geovanna Velázquez MA [facility] 3 11:09:40 Date Recorded Body height Body mass index (BMI) Body weight Oxygen saturation Oxygen saturation in Arterial blood by Pulse oximetry Heart rate Systolic blood pressure Diastolic blood pressure Provider Name and Address Organization Details Last Updated DateTime 4 170.18 cm 31.2 kg/m2 55892.8 8 g 97 % 97 % 77 /min 160 mm[Hg] 98 mm[Hg] Aury Solomon MA [facility] 4 13:57:18 Date Recorded Body height Body mass index (BMI) Body weight Heart rate Systolic blood pressure Diastolic blood pressure Provider Name and Address Organization Details Last Updated DateTime 4 170.18 cm 31.6 kg/m2 37640.6 6 g 82 /min 114 mm[Hg] 68 mm[Hg] Geovanna Velázquez MA [facility] 4 10:30:23 Date Recorded Body height Body mass index (BMI) Body weight Oxygen saturation Oxygen saturation in Arterial blood by Pulse oximetry Heart rate Systolic blood pressure Diastolic blood pressure Provider Name and Address Organization Details Last Updated DateTime 4 170.18 cm 30.8 kg/m2 20964.2 g 97 % 97 % 87 /min 112 mm[Hg] 79 mm[Hg] Geovanna Velázquez MA [facility] 4 10:34:54 Date Recorded Body height Body mass index (BMI) Body weight Oxygen saturation Oxygen saturation in Arterial blood by Pulse oximetry Heart rate Respiratory rate Systolic blood pressure Diastolic blood pressure Provider Name and Address Organization Details Last Updated DateTime 5 170.18 cm 31.3 kg/m2 45617.4 7 g 97 % 97 % 76 /min 16 /min 116 mm[Hg] 76 mm[Hg] Janie Reyes MA [facility] 5 10:24:04 Social History Question Answer Notes LastModified by Organizat ion Details LastModified Time Tobacco Smoking Status Former Smoker Yue Moore MA null, [facility] 08/13/2014 09:47:52 What Is Your Level Of Alcohol Consumption? None Information not available 09/11/2015 Are You Blind Or Do You Have Difficulty Seeing? Yes Contacts [email or web address] Information not available 12/25/2021 What Is Your Level Of Caffeine Consumption? Moderate Coffee Information not available 11/05/2021 How Much Tobacco Do You Chew? None Information not available 09/11/2015 In The 14 Days Before Symptom Onset, Have You Had Close Contact With A Laboratory-confir med COVID-19 While That Case Was Ill? No Information not available 08/29/2020 In The 14 Days Before Symptom Onset, Have You Had Close Contact With A Person Who Is Under Investigation For COVID-19 While That Person Was Ill? No Information not available 08/29/2020 Have You Been To An Area Known To Be High Risk For COVID-19? No Information not available 08/29/2020 Are You Currently Employed? Yes Information not available 08/29/2020 Are You Deaf Or Do You Have Serious Difficulty Hearing? No Information not available 11/05/2021 What Type Of Diet Are You Following? REGULAR Information not available 09/11/2015 Do You Or Have You Ever Used E-cigarettes Or Vape? 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 No Information not available 09/11/2015 Hard Of Hearing Or Deaf In One Or Both Ears? No Information not available 09/11/2015 Legally Blind In One Or Both Eyes? No Information no t available 09/11/2015 What Was The Date Of Your Most Recent Tobacco Screening? 05/01/2024 Information not available 05/01/2024 How Many Children Do You Have? 2 Information not available 05/04/2017 Performs Monthly Self-breast Exam? Yes Information no t available 09/11/2015 What Is Your Relationship Status? Information not available 08/29/2020 Do You Use Your Seat Belt Or Car Seat Routinely? Yes Information not available 08/29/2020 Seat Belts Used Routinely Yes Information not available 09/11/2015 Are You Sexually Active? Yes Information not available 05/04/2017 Smoke Alarm In Home Yes Information not available 09/11/2015 Do You Have Smoke And Carbon Monoxide Detectors In Your Home? Yes Information not available 08/29/2020 At What Age Did You Start Smoking Tobacco? 18 Information not available 02/22/2019 Are You Passively Exposed To Smoke? No Information no t available 08/29/2020 Do You Or Have You Ever Used Smokeless Tobacco? Never Used Smokeless Tobacco Information not available 02/22/2019 How Much Tobacco Do You Smoke? No Information not available 09/11/2015 General Stress Level Low Information not available 09/11/2015 Do You Feel Stressed (tense, Restless, Nervous, Or Anxious, Or Unable To Sleep At Night)? [id number] Information not available 08/29/2020 Do You Use Any Illicit Or Recreational Drugs? No Information not available 08/29/2020 Do You Use Sunscreen Routinely? Yes Information not available 09/11/2015 Has Tobacco Cessation Counseling Been Provided? No Information not available 11/05/2021 On What Date Was Tobacco Cessation Counseling Provided? 05/01/2024 Information not available 05/01/2024 Do You Or Have You Ever Used Any Other Forms Of Tobacco Or Nicotine? No [email or web address] Information not available 12/01/2021 Sex: Female Functional Status Question Answer Note LastModified by Organization D etails LastModified Time Are you able to care for yourself? Yes Information n ot available 11/05/2021 What is your exercise level? None Information not available 09/11/2015 Mental Status None recorded. Family History Relationship Description Onset Age of this Age Resolved Age Notes LastModified by Organization Details LastModified Time Mother Heart disease [email or web address] Not available 08/14 15:29:53 Mother History of hypertension [email or web address] Not available 0 09/11/2015 15:29:53 Mother Diabetes mellitus [email or web address] Not available 08/14 15:29:53 Mother Carcinoma in situ of lung [email or web address] Not available 0 09/11/2015 15:29:53 Father Heart disease [email or web address] Not available 08/14 15:29:53 Father History of hypertension [email or web address] Not available 0 09/11/2015 15:29:53 Father Hyperlipidem ia [email or web address] Not available 08/14 15:29:53 Medical History Condition Response Coronary Artery Disease N Other N High Blood Pressure Y Atrial Fibrillation N Kidney or Bladder Problems N Thyroid Problems Y GI Problems N Depression N COPD N Blood Clots N Skin Problems N Anemia N Heart Attack (NM) N Anxiety Disorder N Diabetes Y Muscle, Joint, or Bone Problems N Seizures/Epilepsy N Acid Reflux (GERD) N Cancer N Stroke N Asthma N Allergies N High Cholesterol N Hepatitis N Liver Disease N Headaches N Heart Failure N Osteoporosis N Gynecological History Statement/Question Response Date of Last Mammogram 06/03/2023 Date of LMP On BCP's at Conception? N Menses Monthly N Date of Last Pap Smear 07/08/2021 Duration of Flow (days) 5 Age at Menarche 13 Current Control Method Menopause Age at First Child 27 LMP Unknown Obstetrics History GPAL:G 2 P 2 0 0 2 Type Value Multiple Births 0 Full Term 2 Induced 0 Spontaneous 0 Premature 0 Living 2 Ectopics 0 Total 2 Immunizations Vaccine Type Date Status Note Provider Nam e and Address Organization Details Recorded Time zoster, unspecified formulation 8 completed Not Available [facility] 04/20/2023 13:38:25 Influenza, split virus, quadrivalent, preservative 8 completed Not Available [facility] 04/20/2023 13:38:25 Influenza, split virus, quadrivalent, preservative 9 completed Not Available [facility] 03/31/2019 02:50:30 Influenza, split virus, quadrivalent, preservative 0 completed NGHIA Patel, [place] - [facility] 12/26/2019 16:21:30 COVID-19, mRNA, LNP-S, PF, 100 mcg/0.5mL dose or 50 mcg/0.25mL dose 1 completed NGHIA Piña, [place] - [facility] 06/13/2020 13:44:16 COVID-19, mRNA, LNP-S, PF, 100 mcg/0.5mL dose or 50 mcg/0.25mL dose 1 completed Jennifer Arevalo [place], [place] [facility] 07/11/2020 16:01:42 pneumococcal polysaccharide PPV23 6 completed ROSALINA EDEN NP Attn: Accounting[address] [place], [address], [place] [facility] 10/24/2023 10:24:21 Influenza, split virus, quadrivalent, preservative 1 completed Aury [place] [facility] 01/02/2021 10:38:35 Influenza, split virus, quadrivalent, PF 2 completed Day Salguero [place] [facility] 12/25/2021 12:28:00 Pneumococcal conjugate PCV20, polysaccharide PDC417 conjugate, adjuvant, PF 3 completed Geovanna Velázquez [place] [facility] 12/15/2022 11:40:58 Influenza, high-dose, quadrivalent, PF 3 completed Geovanna Velázquez [place] [facility] 12/15/2022 11:40:12 Influenza, high-dose, quadrivalent, PF 4 completed Geovanna Velázquez [place] [facility] 12/13/2023 11:30:58 Past Encounters Encounter ID Performer Location Encounter Start Date Encounter Closed Date Diagnosis/Indication Diagnosis SNOMED-CT Code Diagnosis ICD10 Code Diagnosis Note [id number] [facility] [address] [place] [address] 08/13/2014 09:40:27 08/13/2014 11:13:57 Adult health examination [id number] [id number] [facility] [address] [place] [address] 06/09/2015 10:21:05 06/09/2015 11:05:23 Diabetes mellitus 95211812 E11.9 Essential hypertension 33462674 I10 Hypothyroidism 24098051 E03.9 Anxiety 55058946 F41.9 [id number] Roxanne Siddiqui PA-C [facility] [address] [place] [address] 09/11/2015 15:04:35 09/11/2015 16:03:11 Conjunctivitis 8842547 H10.9 Actinic keratosis 647940 007 L57.0 Patient wants a spot on nose and R side of neck removed. [id number] Roxanne Siddiqui PA-C [facility] [address] [place] [address] 01/09/2016 09:40:40 01/12/2016 14:06:49 [id number] Janelle Wills MA [facility] [address] [place] [address] 03/16/2016 09:59:59 03/16/2016 11:49:08 Diabetes mellitus 07812104 E11.9 [id number] Roxanne Siddiqui PA-C [facility] [address] [place] [address] 03/31/2016 19:06:51 03/31/2016 19:46:04 Diabetes mellitus 10318793 E11.9 [id number] Roxanne Siddiqui PA-C [facility] [address] [place] [address] 07/08/2016 10:46:02 07/08/2016 13:31:45 Pain in left knee 3290647790 03677 M25.808 [id number] Roxanne Siddiqui PA-C [place] [address] [place] [address] 07/15/2016 11:51:28 07/15/2016 13:20:10 Acute meniscal tear, medial 012618965 S83.212D [id number] Roxanne Siddiqui PA-C [facility] [address] [place] [address] 04/27/2017 10:54:06 04/27/2017 13:43:09 Diabetes mellitus 31423390 E11.9 Screening for malignant neoplasm of colon 690028929 Z12.11 [id number] VERITO Hess-ALEX [facility] [address] [place] [address] 05/04/2017 16:17:08 05/05/2017 11:22:28 Gynecologic examination 68619217 Z01.419 Menopausal syndrome 1237 11433 N95.9 [id number] Roxanne Siddiqui PA-C [facility] [address] [place] [address] 06/28/2017 09:53:52 06/28/2017 10:41:27 Skin irritation 996912524 L29.8 [id number] Roxanne Siddiqui PA-C [facility] [address] [place] [address] 02/01/2018 10:26:31 02/01/2018 10:56:40 Adult health examination 507220723 Z00.00 Essential hypertension 87238110 I10 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 Counseled regarding prevention of STD's , condom use 2. Pap done and mammogram order given 3. Advised avoidance of tobacco, alcohol, and drugs . 4. Counseled regarding folic acid supplement ation, calcium needs and prevention of osteoporos is . 5. BSE reviewed and recommende d. 6. Follow up in one year or sooner if needed. [id number] [facility] [address] [place] [address] 12/04/2018 14:48:57 12/04/2018 16:39:51 Type 2 diabetes mellitus 99775208 E11.9 [id number] [facility] [address] [place] [address] 12/29/2018 10:18:34 12/29/2018 12:35:19 Type 2 diabetes mellitus 35363259 E11.9 History of thyroid disorder 316359236 Z86.39 Hypertensive disorder 38 041810 I10 Administra tion of influenza vaccine 11771953 Z23 Consent signed 12/29/2018 Essential hypertension 83472000 I10 [id number] Roxanne Siddiqui PA-C [facility] [address] [place] [address] 02/22/2019 15:37:04 02/22/2019 17:11:22 Diabetes mellitus 08004094 E11.9 Essential hypertension 78974545 I10 Angina pectoris 12411497 0 I20.8 Dyspnea on exertion 6084 5006 R06.09 [id number] Roxanne Siddiqui PA-C [facility] [address] [place] [address] 03/05/2019 15:19:41 03/05/2019 16:51:48 Essential hypertension 00795543 I10 Type 2 antwan betes mellitus 24510302 E11.9 [id number] Roxanne Siddiqui PA-C [facility] [address] [place] [address] 09/18/2019 09:47:38 09/18/2019 12:56:36 Type 2 diabetes mellitus 15496649 E11.9 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 809077401 E06.3 [id number] Anahi Quintanilla [facility] [address] [place] [address] 12/26/2019 15:53:16 12/27/2019 13:26:57 Administration of influenza vaccine 32576327 Z23 Consent signed 12/29/2018 [id number] JASON Hanna [address] [facility] [place] [address] 06/13/2020 10:09:01 06/16/2020 16:32:47 Administration of SARS-CoV-2 antigen vaccine 076374943 Z23 [id number] JASON Hanna 14 IM [address] [facility] [place] [address] 07/11/2020 15:47:48 07/11/2020 16:28:59 Administration of SARS-CoV-2 antigen vaccine 672355186 Z23 [id number] [facility] [address] [facility] [place] [address] 08/29/2020 11:56:28 08/29/2020 12:27:26 Diabetes mellitus 73272600 E11.9 Essential hypertension 03504561 I10 History of thyroid disorder 973456296 Z86.39 Gastroesop hageal reflux disease without esophagitis 104315173 K21.9 [id number] Aury Solomon MA [facility] [address] [place] [address] 01/02/2021 10:25:51 01/02/2021 10:53:57 Active or passive immunization 195602661 Z23 [id number] Roxanne Siddiqui PA-C [facility] [address] [place] [address] 05/13/2021 14:14:58 05/13/2021 15:08:11 Body mass index 30+ - obesity 114777296 Z68.31 Irregular heart beat 361 159827 R00.8 [id number] Roxanne Siddiqui PA-C [facility] [address] [place] [address] 11/05/2021 15:26:03 11/05/2021 16:09:04 Candidiasis of skin 72186327 B37.2 Obesity 900361262 E66.9 Overweight 310036219 E66 .3 Adult [facility] th examination 217803364 Z00.00 [id number] Roxanne Siddiqui PA-C [place] [address] [place] [address] 12/01/2021 16:17:22 12/01/2021 17:14:59 Varicose veins of lower extremity 00809238 I83.181 [id number] Day Salguero MA [facility] [address] [place] [address] 12/25/2021 10:45:34 12/25/2021 12:05:16 Obesity 731401760 E66.9 Basal cell carcinoma of skin 839234263 C44.319 Administra tion of influenza vaccine 72355020 Z23 Consent signed 12/29/2018 [id number] Roxanne Siddiqui PA-C [facility] [address] [place] [address] 02/15/2022 10:13:39 02/15/2022 11:03:37 Essential hypertension 20240482 I10 [id number] Roxanne Siddiqui PA-C [facility] [address] [place] [address] 04/16/2022 15:33:52 04/16/2022 15:55:26 Generalized anxiety disorder [id number] F41.1 [id number] Roxanne Siddiqui PA-C [facility] [address] [place] [address] 08/17/2022 17:39:40 08/18/2022 08:48:57 Generalized anxiety disorder 60544503 F41.1 Overweight 590584794 E66 .3 [id number] Geovanna Velázquez MA [facility] [address] [place] [address] 12/15/2022 10:51:26 12/20/2022 16:48:02 Administration of pneumococcal vaccine 50288418 Z23 Administra tion of influenza vaccine 33680246 Z23 Consent signed 12/29/2018 [id number] Roxanne Siddiqui PA-C [facility] [address] [place] [address] 02/22/2023 11:00:14 02/24/2023 15:46:39 Type 2 diabetes mellitus without complication 386036787 E11.9 Pain of le ft knee joint 5101465119 60709 M25.562 Pre-surger y evaluation 475285416 Z01.818 Overweight 825347504 E66 .3 [id number] Roxanne Siddiqui PA-C [facility] [address] [place] [address] 05/10/2023 13:56:14 05/11/2023 09:23:34 Essential hypertension 60247498 I10 take an alpraz...c all back in an hour with reading Overweight 375443685 E66 .3 [id number] ROSALINA EDEN NP [facility] [address] [place] [address] 10/24/2023 09:54:11 11/15/2023 13:26:32 Gynecologic examination 12679109 Z01.419 Route Clerk exam completedB reast WNLDenies any family history of breast, ovarian, pancreatic , endometria l cancer 1. Last pap smear: 07/08/2021 NILM HRHPV Neg; no longer needs pap smears2. STI screening {{complete d declined *}}.3. Pt is post menopausal .4. Discussed breast self awareness5 . Mammogram completed . Colonoscop y done 08/12/2017. Next due . 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 Dexa scan: 09/27/2022 Normal results Menopause 936119946 Z78. 0 pt is post menopausal Discussed vaginal changes, moisturize rs and lubricatio nDiscussed returning to clinic with any vaginal bleedingDi scussed Calcium and Vitamin D supplement ationPatie nt is taking PNV and Tums x 2 daily. Obesity 019457900 E66.8 Diabetes mellitus 399820 09 E11.9 PCP following her DM.A1C due todayOrder placedMess age sent to PCP with results of 6.1 [id number] Aury Solomon MA [facility] [address] [place] [address] 12/13/2023 10:20:52 12/15/2023 12:57:09 Long-term drug therapy 939667934 Z79.899 Essential hypertension 67384827 I10 take an alpraz...c all back in an hour with reading Type 2 antwan betes mellitus 29513161 E11.9 History of thyroid disorder 405325969 Z86.39 Overweight 731212096 E66 .3 Administra tion of influenza vaccine 59622635 Z23 Consent signed 12/29/2018 [id number] Aury Solomon MA [facility] [address] [place] [address] 05/01/2024 10:15:06 05/07/2024 09:59:46 Essential hypertension 52983993 I10 take an alpraz...c all back in an hour with reading Mixed anxi ety and depressive disorder 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.8 Mixed hyperlipidemia 267 300645 E78.2 Overweight 394069091 E66 .3 Health Concerns Section Related Observation LastModified by Organization Detai ls LastModified Time None Recorded Concern Status LastModified by Organization Details LastModified Time None Recorded Advance Directives Directive None Recorded Payers Encounter Date Sequence Insurance Name Policy Number Policy Young Covered Member ID Young Member ID Guarantor Name 02/22/2023 2 [employer] (MEDICARE SUPPLEMENT) Katharina García [id number] Katharina Orban 02/22/2023 1 [place] Katharina Barba Orbbobbi [id number] Katharina Orban 05/10/2023 2 [employer] (MEDICARE SUPPLEMENT) Katharina Barba Orban [id number] Katharina Orban 05/10/2023 1 [place] Katharina Freda Orban [id number] Katharina Orban 10/24/2023 2 [employer] (MEDICARE SUPPLEMENT) Katharina Barba Orban [id number] Katharina Orban 10/24/2023 1 [place] Katharina Barba Orban [id number] Katharina Orban 12/13/2023 2 [employer] (MEDICARE SUPPLEMENT) Katharina Barba Orban [id number] Katharina Orban 12/13/2023 1 [place] Katharina Barba Orban [id number] Katharina Orban 05/01/2024 2 [employer] (MEDICARE SUPPLEMENT) Katharina Barba Orban [id number] Katharina Orban 05/01/2024 1 [place] Katharina Barba Orban [id number] Katharina Orban Notes Date Note Type Note Provider Name and Address Organization Details Recorded Time 02/22/2023 text/html pre surg phys vs left knee... Roxanne Siddiqui PA-C Attn: [address] [place], [address], [place] [facility] 02/22/2023 11:29:10 05/10/2023 text/html blood pressure i s up a little bit up ... 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 Reports menopause at age 44. Denies any HRT. 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 Denies any breast changes/pain, fatigue/cold intolerance/hair loss/dry skin. Denies dyspareunia, pelvic pressure or bowel movement changes.Denies SOB/chest pain/dizziness. Denies any fever or chills. Denies any family history of breast, ovarian, endometrial or pancreatic cancer. LMP: age 44Last pap smear: 07/08/2021 NILM HRHPV NegPap due: no longer needs pap smearsLast Mammogram: 06/03/2023Last Colonoscopy: 08/12/2017 Due: 2027Dexa scan: 09/27/2022 NormalPatient {{is* is not}} sexually active with a {{female male*}} partner. Patient has had 1 {{male* female}} partner in the past 21 years. ROSALINA EDEN NP Attn: [address] [place], [address], [place] [facility] 10/24/2023 12:09:52 12/13/2023 text/html 3 month vs controls...needs labs...all is well [place], [place] [facility] 12/13/2023 11:14:08 05/01/2024 text/html had surgery on n ose for AK...here for refills..needs labs [place], [place] [facility] 05/01/2024 11:10:45 OBGyn Episode Ob Episode Information Episode Created Date Number of Fetuses Patient Bloodtype Patient rh Status Prepregnancy Weight lbs Domestic Partner Domestic Partner Phone Father Name Air Bag Curer Status 05/04/19 18 1 CLOSED Fetus Data First Name Last Name Admitted to NICU Weight (g) Sex Living Outcome Pediatric Complications Fetus ID Race Codes Race Delivery Type 4564.04 2704 M Full Term [id number] Vaginal Mayo Calculation Initial Mayo Date Initial Exam Date Initial Exam Provider Initial Ultrasound Date Last Menstrual Period Date Ultra Sound Weeks Gestation 0 Eighteen To Twenty Week Mayo Update Ultra Sound Date Fundal Height At Umbil Quickening Date Ultra Sound Latest Weeks Gestation Final Mayo Confirmed By Final Mayo Confirmed Date Final Mayo Date Ultra Sound Latest Days Gestation 0 0 Menstrual History Last Menstrual Date Menses Monthly On Bcp Conception Prior Menses Frequency Hcg Plus Date Menarche Onset Age Delivery Information Delivery Date Delivery Type Labor Anesthesia Weeks Gestation Incision Type Labor Labor Length Hrs Delivered By Post Complications Tubal Sterilization Discharge Date Comments 3 None 18 [place] Discharge Information Feeding Method Contraceptive Method Maternal HG B and HCT Levels Ob Episode Information Episode Created Date Number of Fetuses Patient Bloodtype Patient rh Status Prepregnancy Weight lbs Domestic Partner Domestic Partner Phone Father Name Air Bag Curer Status 05/04/19 18 1 CLOSED Fetus Data First Name Last Name Admitted to NICU Weight (g) Sex Living Outcome Pediatric Complications Fetus ID Race Codes Race Delivery Type 3259.96 5704 M Full Term [id number] Vaginal Mayo Calculation Initial Mayo Date Initial Exam Date Initial Exam Provider Initial Ultrasound Date Last Menstrual Period Date Ultra Sound Weeks Gestation 0 Eighteen To Twenty Week Mayo Update Ultra Sound Date Fundal Height At Umbil Quickening Date Ultra Sound Latest Weeks Gestation Final Mayo Confirmed By Final Mayo Confirmed Date Final Mayo Date Ultra Sound Latest Days Gestation 0 0 Menstrual History Last Menstrual Date Menses Monthly On Bcp Conception Prior Menses Frequency Hcg Plus Date Menarche Onset Age Delivery Information Delivery Date Delivery Type Labor Anesthesia Weeks Gestation Incision Type Labor Labor Length Hrs Delivered By Post Complications Tubal Sterilization Discharge Date Comments 4 5 [facility] Discharge Information Feeding Method Contraceptive Method Maternal HG B and HCT Levels
--- OUTSIDE RECORDS SUMMARY | 2024-06-06 08:19 | XMS_ITS | Clinical Summary ---
Author Organization [facility] Address [address] [place] [address] Care Team Providers Care [facility] Pilot Name Role Phone Erasmo Siddiqui Primary Care Provider [phone] Cornelio Joy MD Unavailable [phone] Aimee Martínez Unavailable [phone] Allergies Active Allergy Reactions Criticality Noted Date Comments Aspirin-Sod Bicarb-Citric Acid Hives Medium 04/23/2017 Patient has taken aspirin in past without problems Iodine Swelling Medium Cephalexin Hives Medium 04/23/2017 Naproxen Rash Medium Shellfish Containing Products Swelling High Reaction: ANAPHYLAXIS Vitamin D (With Calcium) Shortness of breath High 04/20/2023 Medications levothyroxine sodium (TIROSINT) 88 mcg capsule take 1 capsule by oral route every day 0 0 4 Active metFORMIN (GLUCOPHAGE) 500 mg tablet take 1 tablet by ORAL route 2 times every day with morning and evening meals 0 0 4 Active ALPRAZolam (XANAX) 1 mg tablet Take 1 tablet (1 mg total) by mouth 3 (three) times a day as needed 0 8 Active lisinopril (PRINIVIL,ZESTR IL) 20 mg tablet Take 1 tablet (20 mg total) by mouth daily 0 8 Active omeprazole (PriLOSEC) 20 mg capsule Take 1 capsule (20 mg total) by mouth daily Active blood glucose diagnostic (Contour Next Test Strips) strip Contour Next Test Strips Active lancets misc Microlet Lancet A ctive melatonin 10 mg tablet Take 1 tablet (10 mg total) by mouth nightly Active docusate sodium (COLACE) 100 mg capsule Take 1 capsule (100 mg total) by mouth 2 (two) times a day Active multivit-minera ls/folic acid (CENTRUM ADULTS ORAL) Take by mouth daily Active acidophilus-pec tin, citrus 100 million cell-10 mg capsule Take by mouth daily Active mupirocin (BACTROBAN) 2 % ointment Apply to each nostril 2 (two) times a day Apply AM 1 day before surgery, PM 1 day before surgery, and AM day of surgery. 22 g 3 Active aspirin 81 mg enteric coated tablet Take 1 tablet (81 mg total) by mouth 2 (two) times a day For 30 days then resume once daily dosing 60 tablet 4 Active ascorbic acid (VITAMIN C) 500 mg tablet,chewable Take 1 tablet/chew tab (500 mg total) by mouth 2 (two) times a day 60 tablet/chew tab 4 Active ondansetron (ZOFRAN) 4 mg tabletIndicatio ns:Prevention of Post-Operative Nausea and Vomiting Take 1 tablet (4 mg total) by mouth every 6 (six) hours as needed for nausea or vomiting 30 tablet 1 4 Active Additional Information Patient not taking.Reported on 06/14/2023 HYDROcodone-haroon taminophen (NORCO) 5-325 mg per tabletIndicatio ns:Pain Take 1-2 tablets by mouth every 4 (four) hours as needed for pain 56 tablet 4 Active Additional Information Patient not taking.Reported on 06/14/2023 methylPREDNISol one (Medrol, Luis Miguel,) 4 mg Dosepack Take as directed on package 1 packet 4 Active gabapentin (NEURONTIN) 300 mg capsule Take 1 capsule (300 mg total) by mouth 3 (three) times a day as needed (for nerve pain) 90 capsule 4 Active Active Problems Problem Noted Date Diagnosed Date Primary osteoarthritis of left knee 02/24/2023 Abnormal mammogram 07/08/2021 Overview (07/08/2021): 06/2021- she is waiting her bx appt Assessment & Plan (07/08/2021 9:49 AM CDT): Awaiting bx appt Well woman exam 07/08/2021 Overview (09/27/2022): Lab: Pap:all normal 2021 wnl pcp does labs Elisha:- 2022. Colonoscopy:2019- due in 5 years BMD: - 0.1. 2022 will plan to repeat in eight Gardasil: Assessment & Plan (09/02/2022 11:33 AM CDT): Pap done. RTO 12m. I will send the results to the portal. If she has not heard in a week, to call the office. Assessment & Plan (07/08/2021 10:17 AM CDT): Pap done. RTO 12m. I will send the results to the portal. If she has not heard in a week, to call the office. HTN (hypertension) 04/24/2017 Assessment & Plan (04/24/2017 5:19 AM SUBWAY TRAIN DRIVER): Currently normotensive. Patient is on lisinopril. Will continue with hold parameters. Paresthesias 04/24/2017 Assessment & Plan (04/24/2017 5:37 AM SUBWAY TRAIN DRIVER): Left-sided paresthesias. Facial paresthesia appears to have resolved. However patient is currently feeling burning on the left fingers and arm. Patient also has very slight weakness in her left upper extremity. Will rule out CVA. Neuro is been consulted. Will check an echo and carotids of the neck. Will check lipid panel. Will continue with aspirin. Patient was started on Lipitor. Will await Neurology recommendations. GERD (gastroesophageal reflux disease) 8 Assessment & Plan (04/24/2017 5:20 AM SUBWAY TRAIN DRIVER): Will continue PPI Hypothyroidism 07/28/2013 Overview (06/18/2016): HYPOTHYROIDISM NOS Assessment & Plan (04/24/2017 5:20 AM SUBWAY TRAIN DRIVER): Will continue with levothyroxine. Type 2 diabetes mellitus 07/28/2013 Overview (06/19/2016): DMII WO CMP NT ST UNCNTR Assessment & Plan (04/24/2017 5:20 AM SUBWAY TRAIN DRIVER): Sugars are controlled. Patient is on metformin at home. Will place on low-dose sliding scale. Left sided numbness Surgical History Surgery Date Site/Laterality Comments TONSILLECTOMY Tonsillectomy Medical History Medical History Date Comments Hx Other Medical shingles Gastroesophageal reflux disease GERD Diabetes mellitus (HCC) Diabetes Hypertension Type 2 diabetes mellitus (HCC) Hypothyroidism Anxiety Family History Medical History Relation Name Comments Heart disease Father Heart disease; Hyperlipidemia Father Hyperlipidemi a; Hypertension Father Hypertension; Other Father Alive and well; Cancer Mother Cancer, unknown ; found in fluid in her lungs Coronary artery disease Mother Timothy nary artery disease; Diabetes type II Mother Diabetes -T ype II; Hyperlipidemia Mother Hyperlipidemi a; Hypertension Mother Hypertension; Other Mother Alive and well; Breast cancer Mother's Sister august Colon cancer Neg Hx no venereal disease control head cancer n o change cmt 09/02/22 Ovarian cancer Neg Hx Thyroid cancer Neg Hx Relation Name Status Comments Father Alive Maternal cousin Mother Alive Mother's Sister august Social History Tobacco Use Types Packs/Day Years Used Date Smoking Tobacco: Former Cigarettes Smokeless Tobacco: Never Tobacco Cessation:Counseling Given: Not Answered Alcohol Use Standard Drinks/Week Comments Yes 0 (1 standard drink = 0.6 oz pur e alcohol) Humiliation, Afraid, Rape, and Kick questionnair e Answer Date Recorded Within the last year, have y ou been afraid of your partner or ex-partner? No 09/02/2022 Within the last year, have y ou been humiliated or emotionally abused in other ways by your partner or ex-partner? No Within the last year, have y ou been kicked, hit, slapped, or otherwise physically hurt by your partner or ex-partner? No 09/02/2022 Within the last year, have y ou been raped or forced to have any kind of sexual activity by your partner or ex-partner? No 09/02/2022 AUDIT-C Answer Date Recorded Frequency of Alcohol Consumption Not on file 03/01/2023 Q2: How many drinks containi ng alcohol do you have on a typical day when you are drinking? Patient does not drink Frequency of Binge Drinking Not on file 02/11 PHQ-2 Answer Date Recorded PHQ-2 Total Score (If total score is 3 or more points, staff should administer the PHQ-9) 0 07/08/2021 Personal Safety Answer Date Recorded Have you ever been in or are you currently in a harmful physical or emotional relationship or is someone making you feel afraid or unsafe? Denies 03/15/2023 Comments No Sex and Gender Information Value Date Recorded Sex Assigned at Not on file Legal Sex Female 11:53 PM SUBWAY TRAIN DRIVER Gender Identity Not on file Sexual Orientation Not on file Obstetrics History Para Term AB IAB SAB Ectopic Multiple Livin g Live Births 2 2 2 2 2 Date Outcome GA Total Labor Labor/2nd/3rd Weight Sex Type Anes PTL Angela A1 A5 Name Clin 2 Term 4.536 kg (10 lb) M Vag-S pont Living 4 Term 3.26 kg (7 lb 3 oz) M Vag-S pont Living Last Filed Vital Signs Vital Sign Reading Time Taken Comments Blood Pressure 118/84 06/14/2023 12:53 PM CDT Pulse 87 06/14/2023 12:53 PM CDT Temperature 36.9 C (98.5 F) 03/15/2023 3:32 PM SUBWAY TRAIN DRIVER Respiratory Rate 16 03/15/2023 3:32 PM SUBWAY TRAIN DRIVER Oxygen Saturation 99% 03/15/2023 3:32 PM SUBWAY TRAIN DRIVER Inhaled Oxygen Concentration - - Weight 91.4 kg (201 lb 9.6 oz) 06/14/2023 12:53 PM CDT Height 165.1 cm (5' 5 ) 06/14/2023 12:53 PM CDT Body Mass Index 33.55 06/14/2023 12:53 PM CDT Plan of Treatment Health Maintenance Due Date Last Done Comments Albumin Creatinine Ratio, Urine 1957 Colon Cancer Screening-Colonoscopy 1957 Hepatitis C Screening 1957 Dilated Eye Exam 1957 Foot Exam 1957 DTaP/Tdap/Td Vaccine (1 - Tdap) 1968 Hepatitis B Screening 1975 Zoster Vaccine (1 of 2) 2007 02/05/2018 Pneumococcal vaccine 65+ (2 of 2 - PCV) 08/01/2016 08/02/2015 Hemoglobin A1C 10/22/2017 04/24/2017 Lipid Panel 04/24/2018 04/24/2017 eGFR 05/13/2022 05/13/2021, 12/0 08/2018, 04/25/2017, Additional history exists Depression Screening 07/08/2022 07/08/2021 Well Visit 65+ 07/08/2022 07/08/2021 Influenza Vaccine (#1) 2023 12/29/2018, 2017 Fall Risk Assessment 03/15/2024 03/15/2023 Breast Cancer Screening-Mammogram 06/02/2024 06/03/2023, 06/19/2021, 04/16/2020, Additional history exists Osteoporosis Screening-Bone Density Scan 09/27/2024 09/27/2022 Cervical Cancer Screening Discontinued 09/02/2022, Medical Devices Implanted Type Area Putaway Driver Device Identifier Shelf Expiration Date Model / Serial / Lot [employer] Attune Cruciate Retain Cementless Knee Left 5 Component Femoral [id number] - [id number] Implanted:Qty: 1 on 03/15/2023 by Daryn Avila MD at [facility] Left: Knee [employer] 05/11/2032 [id number] / / [id number] [employer] Attune Fb Tib Base Sz 4 Por [id number] - [id number] Implanted:Qty: 1 on 03/15/2023 by Daryn Avila MD at [facility] Left: Knee [employer] 09/10/2032 [id number] / / [id number] [employer] Insert Tibial Knee Fixed Lm Posterior Stabilized Attune 6mm Size 5 Polyethylene [id number] - [id number] Implanted:Qty: 1 on 03/15/2023 by Daryn Avila MD at [facility] Left: Knee [employer] 10/11/2030 [id number] / / [id number] Procedures Procedure Name Priority Date/Time Associated Diagnosis Comments SCREENING MAMMOGRAM BILATERAL W MEMO Schedule Routine, Read Routine (OP Routine) 06/03/2023 9:37 AM CDT Screening mammogram, encounter for DEXA AXIAL SKELETON BONE DENSITY 1 OR MORE SITES Schedule Routine, Read Routine (OP Routine) 09/27/2022 8:04 AM CDT Encounter for osteoporosis screening in asymptomatic postmenopausal patient PAP AND HIGH RISK HPV, REFLEX TO GENOTYPING Routine 09/02/2022 11:59 AM CDT Well woman exam EGFR STAT 05/13/2021 3:03 PM SUBWAY TRAIN DRIVER LIPID PANEL Routine 04/24/2017 6:40 AM SUBWAY TRAIN DRIVER HEMOGLOBIN A1C Routine 04/24/2017 6:38 AM SUBWAY TRAIN DRIVER from Last 3 Months or Most Recently Relevant to Health Maintenance Results * Screening Mammogram Bilateral W Memo (06/03/2023 9:37 AM CDT) Anatomical Region Laterality Modality Breast Bilateral Mammography 06/03/2023 9:43 AM CDT Impressions 06/03/2023 9:43 AM CDT There is no mammographic evidence of malignancy. A 1 year screening mammogram is recommended. BI-RADS: 1 - Negative. The patient has been or will be contacted. The patient will be entered into a reminder system with a target due date of 1 year for her next mammogram. Electronically signed by: Kenia Ahn M.D. Narrative 06/03/2023 9:43 AM CDT EXAMINATION: SCREENING MAMMOGRAM BILATERAL W MEMO ORDERING HEALTHCARE PROVIDER: SELF SCREENING MAMMOGRAM HISTORY: Routine screening mammography. COMPARISON: 03/29/2022, 07/06/2021, 06/19/2021, 04/16/2020, 09/15/2018, 07/23/2017 TECHNIQUE: CC and MLO views of the bilateral breasts were obtained with digital technique using breast tomosynthesis with C view. Computer aided detection was utilized. FINDINGS: DENSITY: There are scattered fibroglandular elements in the bilateral breasts. BREASTS: There are benign bilateral microcalcifications. There are no suspicious masses, suspicious calcifications, or other suspicious findings in either breast. There has been no suspicious interval change. us Self Screening Mammogram IMG MAMMO PROCEDURES Fi nal Result * Dexa Axial Skeleton Bone Density 1 Or 2 Site (09/27/2022 8:04 AM CDT) Anatomical Region Laterality Modality Body N/A Other 09/27/2022 9:45 AM CDT Narrative 09/27/2022 9:49 AM CDT EXAM DESCRIPTION: DEXA AXIAL SKELETON BONE DENSITY 1 OR MORE SITES REASON FOR STUDY: 67 y/o year old F with given history of: post-menopausal osteoporosis prevention Screening. Putaway Driver/Model: [employer] (S/N [id number]) CLINICAL INFORMATION: Current height: 67 inches Maximum height: 67 inches Weight: 199 pounds Risk factors: Postmenopausal COMPARISON: None available FINDINGS: AP LUMBAR SPINE L1-L4: Total BMD is 1159 g/cm2 T-score is 1.0 LEFT HIP: Total BMD is 1.050 g/cm2 T-score is 0.9 Femoral neck BMD is 0.843 g/cm2 T-score is -0.1 FRAX: FRAX not reported due to T-scores of hip, femoral neck and/or spine being at or above -1.0 (Normal). IMPRESSION: Normal bone mass. REFERENCE: Bone mineral density: Normal (T-score above or = -1.0) Low bone mass (T-score between -1.0 and -2.5) replaces the previously used term osteopenia Osteoporosis (T-score = or below -2.5) Medical evaluation for secondary causes of low bone mineral density may be appropriate. FRAX is a World Health Organization validated fracture risk assessment tool that calculates a person's 10 year probability of a major osteoporosis related fracture and hip fracture. According to the National Osteoporosis Foundation guidelines, postmenopausal women and men age 50 or older with low bone mass and a 10 year probability of a major osteoporosis related fracture = or greater than 20% or a 10 year probability of a hip fracture = or greater than 3% should be considered for treatment. For further information, including treatment recommendations, please refer to the 2019 ISCD Official Positions (http://www.iscd.org) and the NOF's Clinician's Guide to Prevention and Treatment of Osteoporosis (http://www.nof.org/professionals/clinical-guidelines) THIS IS AN ELECTRONICALLY VERIFIED FINAL REPORT 09/27/2022 9:49 AM - Electronically signed by Cornelio Denny M.D. MF: MOR Report ID: [id number] Reading Location: [place] [address] Procedure Note Cornelio Denny MD - 09/27/2022 EXAM DESCRIPTION: DEXA AXIAL SKELETON BONE DENSITY 1 OR MORE SITES REASON FOR STUDY: 67 y/o year old F with given history of: post-menopausal osteoporosis prevention Screening. Putaway Driver/Model: flipClass SL (S/N [id number]) CLINICAL INFORMATION: Current height: 67 inches Maximum height: 67 inches Weight: 199 pounds Risk factors: Postmenopausal COMPARISON: None available FINDINGS: AP LUMBAR SPINE L1-L4: Total BMD is 1159 g/cm2 T-score is 1.0 LEFT HIP: Total BMD is 1.050 g/cm2 T-score is 0.9 Femoral neck BMD is 0.843 g/cm2 T-score is -0.1 FRAX: FRAX not reported due to T-scores of hip, femoral neck and/or spine beingat or above -1.0 (Normal). IMPRESSION: Normal bone mass. REFERENCE: Bone mineral density: Normal (T-score above or = -1.0) Low bone mass (T-score between -1.0 and -2.5) replaces thepreviously used term osteopenia Osteoporosis (T-score = or below -2.5) Medical evaluation for secondary causes of low bone mineral density may be appropriate. FRAX is a World Health Organization validated fracture risk assessmenttool that calculates a person's 10 year probability of a major osteoporosisrelated fracture and hip fracture. According to the National OsteoporosisFoundation guidelines, postmenopausal women and men age 50 or older with low bonemass and a 10 year probability of a major osteoporosis related fracture = or greater than 20% or a 10 year probability of a hip fracture = or greaterthan 3% should be considered for treatment. For further information, including treatment recommendations, please referto the 2019 ISCD Official Positions (http://www.iscd.org) and the NOF's Clinician's Guide to Prevention and Treatment of Osteoporosis (http://www.nof.org/professionals/clinical-guidelines) THIS IS AN ELECTRONICALLY VERIFIED FINAL REPORT 09/27/2022 9:49 AM - Electronically signed by Cornelio Denny M.D. MF: MOR Report ID: [id number] Reading Location: [place] [address] Meena Hicks MD IM DXA PROCEDURES Final Result * Pap and High Risk HPV, reflex to Genotyping (09/02/2022 11:59 AM CDT) CLINICAL INFORMATION: [facility] Comment:Postmenopausal LMP [facility] Comment:None given Previous Pap [facility] Comment:None given Prev. Bx [facility] Comment:None given SOURCE: [facility] Comment:Cervix, Endocervix Pap, specimen adequacy [facility] Comment:SATISFACTORY FOR DAVID LUATION HPV interp [facility] Comment: Negative for intraepithelial lesion or malignancy. Atrophic pattern; predominantly parabasal cells [employer] [facility] Comment: TLS, CT(ASCP) CT Screening Location: [place] [address] [facility] Comment: EXPLANATORY NOTE: The Pap is a screening test for cervical cancer. It is not a diagnostic test and is subject to false negative and false positive results. It is most reliable when a satisfactory sample, regularly obtained, is submitted with relevant clinical findings and history, and when the Pap result is evaluated along with historic and current clinical information. Human papillomavirus DNA, High Risk E6/E7 Not Detected NOT DETECTED [facility] [place] Comment: Not Detected High Risk HPV types (16,18,31,33,35,39,45,51,52, 56,58,59,66,68) were not detected. Other HPV types which cause anogenital lesions may be present. The significance of the other types of HPV in malignant processes has not been established. Methodology: Real Time PCR Thin prep 09/02/2022 11:5 9 AM CDT 09/03/2022 3:32 AM CDT us Meena Hicks MD LAB CYTOLOGY ORDERA BLES Final Result [facility] [address] [facility] [place] [address] [facility] [address] [place] [address] * eGFR (05/13/2021 3:03 PM SUBWAY TRAIN DRIVER) eGFR 68 mL/min/1. 73 m2 JUWAN MULLIGAN (COTOPAXI) Comment: Interpretive Data Reference Interval Normal >/= 90 mL/min/1.73m2 Mildly decreased* 60 - 89 mL/min/1.73m2 Mildly to moderately decreased 45 - 59 mL/min/1.73m2 Moderately to severely decreased 30 - 44 mL/min/1.73m2 Severely decreased 15 - 29 mL/min/1.73m2 Kidney Failure < 15 mL/min/1.73m2 *Relative to young adult level Estimated glomerular filtration rate is determined by the 2020 CKD-EPI equation recommended by the National Kidney Foundation (A Unifying Approach to GFR Estimation: Recommendations of the NKF-ASK Task Force on Reassessing the Inclusion of Race in Diagnosing Kidney Disease, JASN 2020). The CKD-EPI equation should not be used for patients with unstable renal function and has not been validated in children and those over 70. Current interpretive data was last reviewed 2021. Blood 05/13/2021 3:03 PM SUBWAY TRAIN DRIVER 05/13/2021 3:06 PM SUBWAY TRAIN DRIVER us Juanito Au MD LAB BLOOD ORDERABLES Final Res ult JUWAN MULLIGAN ([place]) [address] [facility] Department [place] [address] * (ABNORMAL) Lipid panel (04/24/2017 6:40 AM SUBWAY TRAIN DRIVER) Cholesterol 205(H) 40 - 199 mg/dL JUWAN MULLIGAN ([place]) Comment: Interpretive Data Desirable: Less than 200 mg/dl Borderline High: 200 - 239 mg/dl High: Greater than 239 mg/dl Current interpretive data was last revised on 2014. Triglycerides 67.0 <=150.0 mg/dL JUWAN MULLIGAN (NICHO) Comment: Interpretive Data Normal: Less than 150 mg/dl Borderline high: 150-199 mg/dl High: 200-499 mg/dl Very high: Greater than or equal to 500 mg/dl Current interpretive data was last revised on 2016. HDL 81(H) 40 - 60 mg/dL JUWAN MULLIGAN ([place]) Comment: Interpretive Data Low HDL Cholesterol: Less than 40 mg/dl Normal HDL Cholesterol: 40-60 mg/dl High HDL Cholesterol: Greater than 60 mg/dl Current interpretive data was last revised on 2014. LDL, calculated 111 mg/dL CAROLINA MULLIGAN (NICHO) Comment: Interpretive Data Optimal Less than 100 mg/dL Near optimal/Above optimal 100 - 129 mg/dL Borderline high 130 - 159 mg/dL High 160 - 189 mg/dL Very high Greater than or = 190 mg/dL LDL values are not valid when the total Triglyceride is greater than 300 mg/dL. Current interpretive data was last revised on 2014. Non-HDL Cholesterol 124 mg/dL JUWAN MULLIGAN ([place]) Comment: Interpretive Data Optimal Less than 130 mg/dL Low Risk 130 - 159 mg/dL Moderate Risk 160 - 189 mg/dL High Risk Greater than or equal to 190 mg/dL Current interpretive data was last revised on 2014. Blood specimen (specimen) 04/24/2017 6:40 AM SUBWAY TRAIN DRIVER 04/24/2017 6:43 AM SUBWAY TRAIN DRIVER Narrative JUWAN MULLIGAN ([place]) - 04/24/2017 7:23 AM SUBWAY TRAIN DRIVER us Tayler Galarza MD LAB BLOOD ORDERABLES Final Resul t JUWAN VARGAS) 1 [facility] Department [place] [address] * (ABNORMAL) Hemoglobin A1c (04/24/2017 6:38 AM SUBWAY TRAIN DRIVER) Hgb A1C 5.8(H) 4.0 - 5.6 % JUWAN MULLIGAN ([place]) Estimated Average Glucose 120 mg/dL JUWAN MULLIGAN ([place]) Comment: The ADA recommends reporting an estimated Average Glucose (eAG) with all Hemoglobin A1c results using the equation derived from a study of 507 normal and diabetic adults. Minority populations were underrepresented and children were not included. (Diabetes Care 31:8307-0385, 2008). The eAG is not equivalent to a fasting glucose. Blood specimen (specimen) 04/24/2017 6:38 AM SUBWAY TRAIN DRIVER 04/24/2017 10:26 AM SUBWAY TRAIN DRIVER Narrative JUWAN MULLIGAN ([place]) - 04/24/2017 10:41 AM SUBWAY TRAIN DRIVER May add to prior labs if possibleAccession# [id number] Iqra Gray MD LAB BLOOD ORDERABLES Final Resul t TAMIRYANNE ISAAK ([place]) 1 [facility] [place] [address] from Last 3 Months or Most Recently Relevant to Health Maintenance Insurance MEDICARE MEDICARE AFLAC Advance Directives For more information, please contact: [phone] * Full Code (Latest Code Status on File) Date Activated Date Inactivated Comments 04/23/2017 3:01 PM 04/25/2017 5:53 PM Care Teams Harbor Pilot Relationship Specialty Start Date End Date Erasmo Siddiqui PA [address] [place] [address] PCP - General 11/08/06 Cornelio Joy MD [address] [place] [address] [address] [place] [address] Consulting Physician Neurology 04/25/17 Aimee Martínez PA [address] [place] [address] [address] [place] [address] Physician Fat Purification Worker Orthopedic Surgery 03/15/23
--- OUTSIDE RECORDS SUMMARY | 2024-06-06 08:19 | XMS_ITS | Referral Summary ---
Author Organization [facility] Address [address] [place] [address] Care Team Providers Care Phlebotomy Supervisor Name Role Phone Erasmo Siddiqui Primary Care Provider [phone] Cornelio Joy MD Unavailable [phone] Aimee Martínez Unavailable [phone] Allergies Active Allergy Reactions Criticality Noted Date [...] 04/24/2017 Assessment & Plan (04/24/2017 5:19 AM GAS STATION ATTENDANT): Currently normotensive. Patient is on lisinopril. Will continue with hold parameters. Paresthesias 04/24/2017 Assessment & Plan (04/24/2017 5:37 AM GAS STATION ATTENDANT): Left-sided paresthesias. Facial paresthesia appears to have [...] 8 Assessment & Plan (04/24/2017 5:20 AM GAS STATION ATTENDANT): Will continue PPI Hypothyroidism 07/28/2013 Overview (06/18/2016): HYPOTHYROIDISM NOS Assessment & Plan (04/24/2017 5:20 AM GAS STATION ATTENDANT): Will continue with levothyroxine. Type 2 diabetes mellitus 07/28/2013 Overview (06/19/2016): DMII WO CMP NT ST UNCNTR Assessment & Plan (04/24/2017 5:20 AM GAS STATION ATTENDANT): Sugars are controlled. Patient is on metformin at home. Will place on low-dose sliding scale. Left sided numbness Social History Tobacco Use Types Packs/Day Years [...] on file Legal Sex Female 11:53 PM GAS STATION ATTENDANT Gender Identity Not on file Sexual Orientation Not on file Last Filed Vital Signs Vital Sign Reading Time Taken Comments Blood Pressure 118/84 06/14/2023 12:53 PM CDT Pulse 87 06/14/2023 12:53 PM CDT Temperature 36.9 C (98.5 F) 03/15/2023 3:32 PM GAS STATION ATTENDANT Respiratory Rate 16 03/15/2023 3:32 PM GAS STATION ATTENDANT Oxygen Saturation 99% 03/15/2023 3:32 PM GAS STATION ATTENDANT Inhaled Oxygen Concentration - - Weight 91.4 kg (201 lb 9.6 oz) 06/14/2023 12:53 PM CDT Height 165.1 cm (5' 5 ) 06/14/2023 12:53 PM CDT Body Mass Index 33.55 06/14/2023 12:53 PM CDT Plan of Treatment Not on file Medical Devices Implanted Type Area Sledger Device Identifier Shelf Expiration Date Model / Serial / Lot [employer] Attune Cruciate Retain Cementless Knee Left 5 Component Femoral [id number] - [id number] Implanted:Qty: 1 on 03/15/2023 by Daryn Avila MD at [facility] Left: Knee [employer] 05/11/2032 [id number] / / [id number] [employer] Attune Fb Tib Base Sz 4 Por [id number] - [id number] Implanted:Qty: 1 on 03/15/2023 by Daryn Avila MD at [facility] Left: Knee [employer] 09/10/2032 [id number] / / [id number] [employer] Insert Tibial Knee Fixed Lm Posterior Stabilized Attune 6mm Size 5 Polyethylene [id number] - [id number] Implanted:Qty: 1 on 03/15/2023 by Daryn Avila MD at [facility] Left: Knee [employer] 10/11/2030 [id number] / / [id number] Procedures Procedure Name Priority [...] woman exam EGFR STAT 05/13/2021 3:03 PM GAS STATION ATTENDANT LIPID PANEL Routine 04/24/2017 6:40 AM GAS STATION ATTENDANT HEMOGLOBIN A1C Routine 04/24/2017 6:38 AM GAS STATION ATTENDANT from Last 3 Months or Most Recently [...] given history of: post-menopausal osteoporosis prevention Screening. Sledger/Model: Mc4 Discovery SL (S/N [id number]) CLINICAL INFORMATION: Current height: 67 inches Maximum [...] Cornelio Denny M.D. MF: MOR Report ID: [id number] Reading Location: [place] [address] Procedure Note Cornelio Denny MD - 09/27/2022 EXAM DESCRIPTION: DEXA AXIAL SKELETON BONE DENSITY 1 OR MORE SITES REASON FOR STUDY: 67 y/o year old F with given history of: post-menopausal osteoporosis prevention Screening. Sledger/Model: Mc4 Discovery SL (S/N [id number]) CLINICAL INFORMATION: Current height: 67 inches Maximum [...] Cornelio Denny M.D. MF: MOR Report ID: [id number] Reading Location: [place] [address] Meena Hicks MD IMG DXA PROCEDURES Final Result * Pap and High Risk HPV, reflex to Genotyping (09/02/2022 11:59 AM CDT) CLINICAL INFORMATION: [facility] Comment:Postmenopausal LMP [facility] [employer] [facility] Comment:None given Previous Pap [facility] [employer] [facility] Comment:None given Prev. Bx [facility] [employer] [facility] Comment:None given SOURCE: Digital Message Display [facility] Comment:Cervix, Endocervix Pap, specimen adequacy [facility] Comment:SATISFACTORY FOR DAVID LUATION HPV interp [facility] [employer] [facility] Comment: Negative for intraepithelial lesion or malignancy. Atrophic pattern; predominantly parabasal cells Inventory Control Manager [facility] Comment: TLS, CT(ASCP) CT Screening Location: [place] [address] Comment [facility] [employer] [facility] Comment: EXPLANATORY NOTE: The Pap is a [...] High Risk E6/E7 Not Detected NOT DETECTED Digital Message Display /Elis [facility]VA Comment: Not Detected High Risk HPV types (16,18,31,33,35,39,45,51,52, 56,58,59,66,68) were not detected. Other HPV types which cause anogenital lesions may be present. The significance of the other types of HPV in malignant processes has not been established. Methodology: Real Time PCR Thin prep 09/02/2022 11:5 9 AM CDT 09/03/2022 3:32 AM CDT Meena Hicks MD LAB CYTOLOGY ORDERA BLES Final Result [facility] [place] [address] [place] [address] Digital Message Display/Elis GonzaleztillyDepartment [facility] [address] [place], [place] * eGFR (05/13/2021 3:03 PM GAS STATION ATTENDANT) eGFR 68 mL/min/1. 73 m2 [facility] ([place]) Comment: Interpretive Data Reference Interval Normal >/= [...] last reviewed 2021. Blood 05/13/2021 3:03 PM GAS STATION ATTENDANT 05/13/2021 3:06 PM GAS STATION ATTENDANT us Juanito Au MD LAB BLOOD ORDERABLES Final Res ult [facility] ([place]) [address] [facility] Department [place] [address] * (ABNORMAL) Lipid panel (04/24/2017 6:40 AM GAS STATION ATTENDANT) Cholesterol 205(H) 40 - 199 mg/dL [facility] ([place]) Comment: Interpretive Data Desirable: Less than 200 [...] 2014. Blood specimen (specimen) 04/24/2017 6:40 AM GAS STATION ATTENDANT 04/24/2017 6:43 AM GAS STATION ATTENDANT Narrative [facility]UWAN VARGAS) - 04/24/2017 7:23 AM GAS STATION ATTENDANT us Tayler Galarza MD LAB BLOOD ORDERABLES Final Resul t [facility]AS) 1 [facility] [place] [address] * (ABNORMAL) Hemoglobin A1c (04/24/2017 6:38 AM GAS STATION ATTENDANT) Hgb A1C 5.8(H) 4.0 - 5.6 % [facility] VARGAS) Estimated Average Glucose 120 mg/dL [facility] VARGAS) Comment: The ADA recommends reporting an estimated Average Glucose (eAG) with all Hemoglobin A1c results using the equation derived from a study of 507 normal and diabetic adults. Minority populations were underrepresented and children were not included. (Diabetes Care 31:8704-2070, 2008). The eAG is not equivalent to a fasting glucose. Blood specimen (specimen) 04/24/2017 6:38 AM GAS STATION ATTENDANT 04/24/2017 10:26 AM GAS STATION ATTENDANT Narrative [facility] ([place]) - 04/24/2017 10:41 AM GAS STATION ATTENDANT May add to prior labs if possibleAccession# [id number] Iqra Gray MD LAB BLOOD ORDERABLES Final Resul t [facility]ULL[facility] ([place]) [address] [facility] [place] [address] from Last 3 Months or Most Recently Relevant to Health Maintenance Insurance MEDICARE MEDICARE [facility] Advance Directives For more information, please contact: [phone] * Full Code (Latest Code Status on File) Date Activated Date Inactivated Comments 04/23/2017 3:01 PM 04/25/2017 5:53 PM Care Teams Phlebotomy Supervisor Relationship Specialty Start Date End Date Erasmo Siddiqui PA [address] [place] [address] PCP - General 11/08/06 Cornelio Joy MD [address] [place] [address] [address] [place] [address] Consulting Physician Neurology 04/25/17 Aimee Martínez PA [address] [place] [address] [address] [place] [address] Physician Diesel Powerplant Supervisor Orthopedic Surgery 03/15/23
== END 2024-06-06 08:08 | disposition home or self-care (01) ==
LOC: CHSIMG 08:13
PROVIDERS: PCP Physician Assistant; Visit Provider Nurse Practitioner Women's Health
DX: Z12.31 Encounter for screening mammogram for malignant neoplasm of breast (principal); R91.8 Other nonspecific abnormal finding of lung field
CPT/HCPCS: 77063; 77067